=== PATIENT | female | born 1965 | race African-American/Black ===

== ENCOUNTER 2023-12-18 15:06 | Outpatient (AMB) | payer OTHER, SELFPAY ==
[2023-12-18 15:13] VITALS: BP 160/90; PULSE 65; O2SAT 97; BMI 38.0
--- NOTE | 2023-12-18 15:13 | HO.NEPHOV ---
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 She is diabetes for a long time but denies any retinopathy. She has cataract and is followed by Ophthalmology. She has history of proteinuria and neuropathy. She had a renal biopsy well over a decade ago, results of which she is unsure of. She had been closely followed up by Dr. Blackwell in the past. She denies any heart failure, CVA, peripheral arterial disease, carotid stenosis, coronary artery disease. She does not check her blood sugar every day. She claimed at her blood pressure usually is at goal. She has not very strict with low-sodium diet. 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 She has been having pedal edema for a long time. She has no family history of ESRD or renal transplantation. He has been monitoring about Vutisiran for her ATTR amyloid. Her serum creatinine has been well over 2.0. She has no history of malignancy, sensorineural deafness or autoimmune problems. She does not take any excessive nonsteroidal anti-inflammatories. She is active and employed. She is 2 children, a boy and a girl. Her daughter who is 34 years of age suffering from CIDP. [facility] Medical History (Updated 12/18/23 @ 16:03 by Bello Jiang MD) Allergic rhinitis Type 2 diabetes mellitus with renal manifestations Vitamin D deficiency Hypertension Hyperlipidemia Microalbuminuria Bilateral knee pain Bilateral wrist pain Surgical History (Updated 12/16/23 @ 16:04 by Holly Vera MA) Hx of tonsillectomy History of hand surgery Social History (Updated 12/18/23 @ 15:16 by Holly Vera MA) Alcohol intake: never Patient Tobacco Use Status: Never used Tobacco Physical Exam Vital Signs: Last Vital Signs Pulse 65 12/18/23 15:13 BP 160/90 H 12/18/23 15:13 Pulse Ox 97 12/18/23 15:13 Oxygen Delivery Method Room Air 12/18/23 15:13 BMI result Body Mass Index 38.0 Const General: comfortable and no acute distress Orientation/consciousness: patient oriented x3 HEENT Head: Yes normocephalic Mouth: Normal oral and palatal mucosa present Eyes EOM: EOMs intact bilaterally Neck Neck: Yes supple Resp Auscultation: clear to auscultation bilaterally Cardio Jugular venous distension: no JVD Rate: regular rate GI Palpation (GI): Soft to palpation Auscultation: normal bowel sounds General: Yes no CVA tenderness Back/Spine/Pelvis Back: no CVA tenderness Skin General skin exam: no rashes or lesions noted Neuro General: patient oriented x3 and moves all extremities Extrem General: Yes edema Results Reviewed Nephrology Results: No Data to Display Assessment & Plan Assessment & Plan (1) CKD (chronic kidney disease) stage 4, GFR 15-29 ml/min: Code(s): N18.4 - Chronic kidney disease, stage 4 (severe) Category: Medical (2) Edema: Code(s): R60.9 - Edema, unspecified Category: Medical Qualifiers: Edema type: unspecified Qualified Code(s): R60.9 - Edema, unspecified (3) Proteinuria: Code(s): R80.9 - Proteinuria, unspecified Category: Medical Qualifiers: Proteinuria type: other Qualified Code(s): R80.8 - Other proteinuria (4) Hypertension: Code(s): I10 - Essential (primary) hypertension Category: Medical Qualifiers: Hypertension type: primary hypertension Qualified Code(s): I10 - Essential (primary) hypertension (5) Wild-type transthyretin-related (ATTR) amyloidosis: Code(s): E85.82 - Wild-type transthyretin-related (ATTR) amyloidosis Category: Medical Plan Gisselle has CKD stage 4. She had a renal biopsy over a decade. I have not seen her gene testing or renal biopsy results. If she has ATTR amyloid, she needs serum immunofixation, cardiac evaluation before consideration of Vutisiran. Her edema likely is due to nifedipine. I have ordered urine studies including 24 hour collection for creatinine clearance. Based on the data, I shall considering taking her off nifedipine to help her improve with edema.Time spent discussing about all these issues and management strategies, retrieval of data and documentation included 58 minutes. Answered all questions. Follow up appointment given Orders: Orders Creatinine Today E85.82 - Wild-type transthyretin-related (ATTR) amyloidosis, I10 - Essential (primary) hypertension, N18.4 - Chronic kidney disease, stage 4 (severe), R60.9 - Edema, unspecified, R80.8 - Other proteinuria Blood Urea Nitrogen Today E85.82 - Wild-type transthyretin-related (ATTR) amyloidosis, I10 - Essential (primary) hypertension, N18.4 - Chronic kidney disease, stage 4 (severe), R60.9 - Edema, unspecified, R80.8 - Other proteinuria Creatinine Clearance Urine 24U Today E85.82 - Wild-type transthyretin-related (ATTR) amyloidosis, I10 - Essential (primary) hypertension, N18.4 - Chronic kidney disease, stage 4 (severe), R60.9 - Edema, unspecified, R80.8 - Other proteinuria Electrolytes Today E85.82 - Wild-type transthyretin-related (ATTR) amyloidosis, I10 - Essential (primary) hypertension, N18.4 - Chronic kidney disease, stage 4 (severe), R60.9 - Edema, unspecified, R80.8 - Other proteinuria Coding Level of Care Code New Pt Level 5 (23591) Diagnoses CKD (chronic kidney disease) stage 4, GFR 15-29 ml/min N18.4 Edema, unspecified type R60.9 Edema type: unspecified Other proteinuria R80.8 Proteinuria type: other Primary hypertension I10 Hypertension type: primary hypertension Wild-type transthyretin-related (ATTR) amyloidosis E85.82
== END 2023-12-18 16:17 | disposition home or self-care (01) ==
PROVIDERS: PCP Internal Medicine; Visit Provider Internal Medicine Nephrology
DX: I12.9 Hypertensive chronic kidney disease with stage 1 through stage 4 chronic kidney disease, or unspecified chronic kidney disease (principal); N18.4 Chronic kidney disease, stage 4 (severe); R60.9 Edema, unspecified; R80.8 Other proteinuria; E85.82 Wild-type transthyretin-related (ATTR) amyloidosis
CPT/HCPCS: 99205

== ENCOUNTER → 2023-12-18 15:06 | Outpatient (BNVA) | payer OTHER, SELFPAY | PROVIDERS: PCP Internal Medicine; Visit Provider Internal Medicine Nephrology ==

== ENCOUNTER 2024-02-03 14:30 | Outpatient (REF) | payer OTHER, SELFPAY ==
[2024-02-03 18:05] LABS: Anion Gap 15 (12-20); Blood Urea Nitrogen 31 mg/dL (9-16); Carbon Dioxide 21 mmol/L (22-29); Chloride 107 mmol/L (96-108); Estimated Glomerular Filt Rate 21; Potassium 4.2 mmol/L (3.3-5.1); Sodium 139 mmol/L (135-145)
[2024-02-03 18:35] LABS: Creatinine, mg/dL 50.17
[2024-02-03 18:45] LABS: Creatinine Clearance 41.3 mL/min (85-125); Creatinine, 24Hr Urine 1.4 G/Day (1.0-2.0); Total Volume 24 Hour Urine 2850 mL
== END 2024-02-03 14:31 | disposition home or self-care (01) ==
LOC: HO.HKASLDS 14:30
PROVIDERS: Visit Provider Internal Medicine Nephrology
DX: E85.82 Wild-type transthyretin-related (ATTR) amyloidosis (principal); R80.8 Other proteinuria; R60.9 Edema, unspecified; N18.4 Chronic kidney disease, stage 4 (severe); I12.9 Hypertensive chronic kidney disease with stage 1 through stage 4 chronic kidney disease, or unspecified chronic kidney disease
CPT/HCPCS: 36415; 80051; 82565; 82575; 84520

== ENCOUNTER 2024-02-17 15:07 | Outpatient (AMB) | payer OTHER, SELFPAY ==
[2024-02-17 15:19] VITALS: BP 138/80; PULSE 95; O2SAT 97; BMI 37.0
--- NOTE | 2024-02-17 15:19 | HO.NEPHOV ---
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 She is diabetes for a long time but denies any retinopathy. She has cataract and is followed by Ophthalmology. She has history of proteinuria and neuropathy. She had a renal biopsy well over a decade ago, results of which she is unsure of. She had been closely followed up by Dr. Blackwell in the past. She denies any heart failure, CVA, peripheral arterial disease, carotid stenosis, coronary artery disease. She does not check her blood sugar every day. She claimed at her blood pressure usually is at goal. She has not very strict with low-sodium diet. 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 She has been having pedal edema for a long time ( on nifedipine). She has no family history of ESRD or renal transplantation. He has been monitoring about Vutisiran for her ATTR amyloid. Her serum creatinine has been well over 2.0. She has no history of malignancy, sensorineural deafness or autoimmune problems. She does not take any excessive nonsteroidal anti-inflammatories. She is active and employed. She is 2 children, a boy and a girl. Her daughter who is 34 years of age suffering from CIDP. Her last GFR by cr cl was 41 mls/mt [facility] Medical History (Updated 02/17/24 @ 15:49 by Bello Jiang MD) Allergic rhinitis Type 2 diabetes mellitus with renal manifestations Vitamin D deficiency Hypertension Hyperlipidemia Microalbuminuria Bilateral knee pain Bilateral wrist pain Surgical History Hx of tonsillectomy History of hand surgery Social History Alcohol intake: never Patient Tobacco Use Status: Never used Tobacco Physical Exam Vital Signs: Last Vital Signs Pulse 95 02/17/24 15:19 BP 138/80 02/17/24 15:19 Pulse Ox 97 02/17/24 15:19 Oxygen Delivery Method Room Air 02/17/24 15:19 BMI result Body Mass Index 37.0 Const General: comfortable and no acute distress Orientation/consciousness: patient oriented x3 HEENT Head: Yes normocephalic Mouth: Normal oral and palatal mucosa present Eyes EOM: EOMs intact bilaterally Neck Neck: Yes supple Resp Auscultation: clear to auscultation bilaterally Cardio Jugular venous distension: no JVD Rate: regular rate GI Palpation (GI): Soft to palpation Auscultation: normal bowel sounds General: Yes no CVA tenderness Back/Spine/Pelvis Back: no CVA tenderness Skin General skin exam: no rashes or lesions noted Neuro General: patient oriented x3 and moves all extremities Extrem General: Yes edema Results Reviewed Nephrology Results: Sodium 139 mmol/L (135-145) 02/03/24 Potassium 4.2 mmol/L (3.3-5.1) 02/03/24 Chloride 107 mmol/L (96-108) 02/03/24 Carbon Dioxide 21 mmol/L (22-29) L 02/03/24 BUN 31 mg/dL (9-16) H 02/03/24 Creatinine 2.40 mg/dL (0.5-1.4) H 02/03/24 Assessment & Plan Assessment & Plan (1) Wild-type transthyretin-related (ATTR) amyloidosis: Code(s): E85.82 - Wild-type transthyretin-related (ATTR) amyloidosis Category: Medical (2) Proteinuria: Code(s): R80.9 - Proteinuria, unspecified Category: Medical Qualifiers: Proteinuria type: other Qualified Code(s): R80.8 - Other proteinuria (3) Edema: Code(s): R60.9 - Edema, unspecified Category: Medical Qualifiers: Edema type: unspecified Qualified Code(s): R60.9 - Edema, unspecified (4) Hypertension: Code(s): I10 - Essential (primary) hypertension Category: Medical Qualifiers: Hypertension type: primary hypertension Qualified Code(s): I10 - Essential (primary) hypertension (5) CKD stage 3b, GFR 30-44 ml/min: Code(s): N18.32 - Chronic kidney disease, stage 3b Category: Medical Plan Gisselle has CKD stage 3b. Her last cr cl by 24 hour urine is 41 mls/mt. She had a renal biopsy over a decade. I have not seen her gene testing or renal biopsy results. If she has ATTR amyloid, she needs serum immunofixation, cardiac evaluation before consideration of Vutisiran. Her edema likely is due to nifedipine. Based on the data, I shall considering taking her off nifedipine to help her improve with edema. Answered all questions. Follow up appointment given Orders: Orders Blood Urea Nitrogen Today E85.82 - Wild-type transthyretin-related (ATTR) amyloidosis, I10 - Essential (primary) hypertension, N18.32 - Chronic kidney disease, stage 3b, R60.9 - Edema, unspecified, R80.8 - Other proteinuria Protein Creatinine Ratio, Ur Today E85.82 - Wild-type transthyretin-related (ATTR) amyloidosis, I10 - Essential (primary) hypertension, N18.32 - Chronic kidney disease, stage 3b, R60.9 - Edema, unspecified, R80.8 - Other proteinuria Creatinine Today E85.82 - Wild-type transthyretin-related (ATTR) amyloidosis, I10 - Essential (primary) hypertension, N18.32 - Chronic kidney disease, stage 3b, R60.9 - Edema, unspecified, R80.8 - Other proteinuria Electrolytes Today E85.82 - Wild-type transthyretin-related (ATTR) amyloidosis, I10 - Essential (primary) hypertension, N18.32 - Chronic kidney disease, stage 3b, R60.9 - Edema, unspecified, R80.8 - Other proteinuria Immunofixation Pnl, Serum Today E85.82 - Wild-type transthyretin-related (ATTR) amyloidosis, I10 - Essential (primary) hypertension, N18.32 - Chronic kidney disease, stage 3b, R60.9 - Edema, unspecified, R80.8 - Other proteinuria Coding Level of Care Code Est Pt Level 4 (73712) Diagnoses Wild-type transthyretin-related (ATTR) amyloidosis E85.82 Other proteinuria R80.8 Proteinuria type: other Edema, unspecified type R60.9 Edema type: unspecified Primary hypertension I10 Hypertension type: primary hypertension CKD stage 3b, GFR 30-44 ml/min N18.32
== END 2024-02-17 15:57 | disposition home or self-care (01) ==
PROVIDERS: PCP Internal Medicine; Visit Provider Internal Medicine Nephrology
DX: E85.82 Wild-type transthyretin-related (ATTR) amyloidosis (principal); R80.8 Other proteinuria; R60.9 Edema, unspecified; I10 Essential (primary) hypertension; N18.32 Chronic kidney disease, stage 3b
CPT/HCPCS: 99214

== ENCOUNTER → 2024-02-17 15:07 | Outpatient (BNVA) | payer OTHER, SELFPAY | PROVIDERS: PCP Internal Medicine; Visit Provider Internal Medicine Nephrology ==

== ENCOUNTER 2024-05-05 13:49 | Outpatient (REF) | payer OTHER, SELFPAY ==
[2024-05-05 18:36] LABS: Anion Gap 14 (12-20); Blood Urea Nitrogen 29 mg/dL (9-16); Carbon Dioxide 20 mmol/L (22-29); Chloride 112 mmol/L (96-108); Estimated Glomerular Filt Rate 21; Potassium 4.1 mmol/L (3.3-5.1); Sodium 142 mmol/L (135-145)
[2024-05-05 19:17] LABS: Creatinine Urine 67.63 mg/dL; Protein/Creatinine Ratio, Ur 0.71 (<0.2); Total Protein Urine Random 48 mg/dL (<12)
[2024-05-07 20:38] LABS: IgA 326 mg/dL (70-320); IgG 1224 mg/dL (600-1540); IgM 88 mg/dL (50-300)
== END 2024-05-05 13:50 | disposition home or self-care (01) ==
LOC: HO.HKASLDS 13:49
PROVIDERS: Visit Provider Internal Medicine Nephrology
DX: I12.9 Hypertensive chronic kidney disease with stage 1 through stage 4 chronic kidney disease, or unspecified chronic kidney disease (principal); N18.32 Chronic kidney disease, stage 3b; E85.82 Wild-type transthyretin-related (ATTR) amyloidosis; R80.8 Other proteinuria; R60.9 Edema, unspecified
CPT/HCPCS: 36415; 80051; 82565; 82570; 82784; 84156; 84520; 86334

== ENCOUNTER 2024-05-11 16:16 | Outpatient (AMB) | payer OTHER, SELFPAY ==
--- NOTE | 2024-05-11 16:17 | HO.NEPHOV ---
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 She is diabetes for a long time but denies any retinopathy. She has cataract and is followed by Ophthalmology. She has history of proteinuria and neuropathy. She had a renal biopsy well over a decade ago, results of which she is unsure of. She had been closely followed up by Dr. Blackwell in the past. She denies any heart failure, CVA, peripheral arterial disease, carotid stenosis, coronary artery disease. She does not check her blood sugar every day. She claimed at her blood pressure usually is at goal. She has not very strict with low-sodium diet. 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 She has been having pedal edema for a long time ( on nifedipine). She has no family history of ESRD or renal transplantation. He has been monitoring about Vutisiran for her ATTR amyloid. Her serum creatinine has been well over 2.0. She has no history of malignancy, sensorineural deafness or autoimmune problems. She does not take any excessive nonsteroidal anti-inflammatories. She is active and employed. She is 2 children, a boy and a girl. Her daughter who is 34 years of age suffering from CIDP. Her last GFR by cr cl was 41 mls/mt [facility] Medical History (Updated 02/17/24 @ 15:49 by Bello Jiang MD) Allergic rhinitis Type 2 diabetes mellitus with renal manifestations Vitamin D deficiency Hypertension Hyperlipidemia Microalbuminuria Bilateral knee pain Bilateral wrist pain Surgical History Hx of tonsillectomy History of hand surgery Social History Alcohol intake: never Patient Tobacco Use Status: Never used Tobacco Review of Systems Const All systems reviewed & are unremarkable except as noted in HPI and below Physical Exam Vital Signs: Last Vital Signs Pulse 68 05/11/24 16:19 BP 142/80 H 05/11/24 16:19 Pulse Ox 98 05/11/24 16:19 Oxygen Delivery Method Room Air 05/11/24 16:19 BMI result Body Mass Index 37.8 Const General: comfortable and no acute distress Orientation/consciousness: patient oriented x3 HEENT Head: Yes normocephalic Mouth: Normal oral and palatal mucosa present Eyes EOM: EOMs intact bilaterally Neck Neck: Yes supple Resp Auscultation: clear to auscultation bilaterally Cardio Jugular venous distension: no JVD Rate: regular rate Heart sounds: Murmur heart sound present GI Palpation (GI): Soft to palpation Auscultation: normal bowel sounds General: Yes no CVA tenderness Back/Spine/Pelvis Back: no CVA tenderness Skin General skin exam: no rashes or lesions noted Neuro General: patient oriented x3 and moves all extremities Extrem General: Yes edema Results Reviewed Nephrology Results: Sodium 142 mmol/L (135-145) 05/05/24 Potassium 4.1 mmol/L (3.3-5.1) 05/05/24 Chloride 112 mmol/L (96-108) H 05/05/24 Carbon Dioxide 20 mmol/L (22-29) L 05/05/24 BUN 29 mg/dL (9-16) H 05/05/24 Creatinine 2.40 mg/dL (0.5-1.4) H 05/05/24 Urine Creatinine 67.63 mg/dL 05/05/24 Protein/Creatinin Ratio 0.71 (<0.2) H 05/05/24 Assessment & Plan Assessment & Plan (1) CKD stage 3b, GFR 30-44 ml/min: Code(s): N18.32 - Chronic kidney disease, stage 3b Category: Medical (2) Proteinuria: Code(s): R80.9 - Proteinuria, unspecified Category: Medical Qualifiers: Proteinuria type: other Qualified Code(s): R80.8 - Other proteinuria (3) Edema: Code(s): R60.9 - Edema, unspecified Category: Medical Qualifiers: Edema type: unspecified Qualified Code(s): R60.9 - Edema, unspecified (4) Hypertension: Code(s): I10 - Essential (primary) hypertension Category: Medical Qualifiers: Hypertension type: primary hypertension Qualified Code(s): I10 - Essential (primary) hypertension Plan Gisselle has CKD stage 3b. Her last cr cl by 24 hour urine is 41 mls/mt. Her renal functions are stable. She had a renal biopsy over a decade. I have not seen her gene testing or renal biopsy results. If she has ATTR amyloid, she needs serum immunofixation, cardiac evaluation before consideration of Vutisiran. Her edema likely is due to nifedipine. So I discontinued Nifedipine and increased her hydralazine to 75 mg tid. She may need addition of Imdur and diuretics. Answered all questions. Follow up appointment given Orders: Orders Creatinine 3 Months I10 - Essential (primary) hypertension, N18.32 - Chronic kidney disease, stage 3b, R60.9 - Edema, unspecified, R80.8 - Other proteinuria Electrolytes 3 Months I10 - Essential (primary) hypertension, N18.32 - Chronic kidney disease, stage 3b, R60.9 - Edema, unspecified, R80.8 - Other proteinuria Blood Urea Nitrogen 3 Months I10 - Essential (primary) hypertension, N18.32 - Chronic kidney disease, stage 3b, R60.9 - Edema, unspecified, R80.8 - Other proteinuria Medications: Changed From hydralazine 75 mg PO TID To hydralazine 75 mg (1.5 x 50 mg) PO TID 90 days 405 tabs 3RF Coding Level of Care Code Est Pt Level 4 (79765) Diagnoses CKD stage 3b, GFR 30-44 ml/min N18.32 Other proteinuria R80.8 Proteinuria type: other Edema, unspecified type R60.9 Edema type: unspecified Primary hypertension I10 Hypertension type: primary hypertension
[2024-05-11 16:19] VITALS: BP 142/80; PULSE 68; O2SAT 98; BMI 37.8
== END 2024-05-11 16:40 | disposition home or self-care (01) ==
PROVIDERS: PCP Internal Medicine; Visit Provider Internal Medicine Nephrology
DX: N18.32 Chronic kidney disease, stage 3b (principal); R80.8 Other proteinuria; R60.9 Edema, unspecified; I10 Essential (primary) hypertension
CPT/HCPCS: 99214

== ENCOUNTER → 2024-05-11 16:16 | Outpatient (BNVA) | payer OTHER, SELFPAY | PROVIDERS: PCP Internal Medicine; Visit Provider Internal Medicine Nephrology ==

== ENCOUNTER 2024-08-26 10:20 | Outpatient (REF) | payer OTHER, SELFPAY ==
--- OUTSIDE RECORDS SUMMARY | 2024-08-26 13:47 | XMS_ITS | Clinical Summary ---
Author Organization [facility] Address [address] [place] [address] Phone Care Team Providers Care Broom Stitcher Name Role Phone Susan Hodge MD Primary Care Provider [phone] Allergies Active Allergy Reactions Criticality Noted Date Comments Aspirin 02/15/2009 Lisinopril 02/15/2009 Medications Medication Sig Dispensed Refills Start Date End Date Status calcifediol (Rayaldee) 30 mcg capsule,extended release 24 hr Take 1 capsule by mouth. Active cholecalciferol (VITAMIN D-3) 50 mcg (2,000 unit) tablet Take 1 tablet (2,000 Units total) by mouth 1 (one) time each day. 10/15/2022 Active dulaglutide (Trulicity) 3 mg/0.5 mL pen injector injection Inject 0.5 mL (3 mg total) under the skin. 09/19/2023 Active glipiZIDE (GLUCOTROL XL) 5 mg 24 hr tablet Take 1 tablet (5 mg total) by mouth 2 (two) times a day. 09/18/2023 Active hydrALAZINE (APRESOLINE) 25 mg tablet Take 1 tablet (25 mg total) by mouth. 09/18/2023 Active labetaloL (NORMODYNE) 200 mg tablet Take 1 tablet (200 mg total) by mouth. Active loratadine (CLARITIN) 10 mg tablet Take 1 tablet (10 mg total) by mouth 1 (one) time each day. 05/20/2023 Active losartan (COZAAR) 100 mg tablet Take 1 tablet (100 mg total) by mouth. 10/15/2022 Active NIFEdipine CC (ADALAT CC) 90 mg 24 hr tablet Take 1 tablet (90 mg total) by mouth 1 (one) time each day. 03/21/2023 Active simvastatin (ZOCOR) 20 mg tablet Take 1 tablet (20 mg total) by mouth 1 (one) time each day. 05/20/2023 Active atorvastatin (LIPITOR) 10 mg tabletIndications:Esse ntial (primary) hypertension,Type 2 diabetes mellitus with other diabetic kidney complication ([facility]) TAKE 1 TABLET BY MOUTH EVERY DAY 90 tablet 1 07/14/2024 Active Active Problems Problem Noted Date Diagnosed Date Bilateral knee pain 09/29/2023 Bilateral wrist pain 06/27/2021 Microalbuminuria 02/22/2019 Hypertension 03/09/2018 Hyperlipidemia 03/09/2018 Type 2 diabetes mellitus with renal manifestatio ns 03/09/2018 Vitamin D deficiency 03/09/2018 Allergic rhinitis 12/05/2014 Surgical History Surgery Date Site/Laterality Comments TONSILLECTOMY PROCEDURE: HISTORICAL TONSILLECTOMY HAND SURGERY PROCEDURE: HISTORICAL HAND SURGERY Medical History Medical History Date Comments Microalbuminuria 02/22/2019 DX:Microalbumin uria Allergic rhinitis 12/05/2014 DX:Allergic rh initis Hyperlipidemia 03/09/2018 DX:Hyperlipidemi a Hypertension 03/09/2018 DX:Hypertension Type 2 diabetes mellitus wit h renal manifestations ([facility]) 03/09/2018 DX:Type 2 diabetes mellitus with renal manifestations ([facility]) Vitamin D deficiency 03/09/2018 DX:Vitamin D deficiency Severe obesity (BMI 35.0-35. 9 with comorbidity) (CMS/HCC) 02/22/2019 DX:Severe obesity (BMI 35.0- 35.9 with comorbidity) ([facility]) Bilateral knee pain DX:Bilateral knee pain Social History Tobacco Use Types Packs/Day Years Used Date Smoking Tobacco: Never Smokeless Tobacco: Never Alcohol Use Standard Drinks/Week Comments No 0 (1 standard drink = 0.6 oz pur e alcohol) Sex and Gender Information Value Date Recorded Sex Assigned at Not on file Gender Identity Not on file Sexual Orientation Not on file Obstetrics History Last Filed Vital Signs Vital Sign Reading Time Taken Comments Blood Pressure 130/80 05/05/2024 2:32 PM EDT Pulse 85 05/05/2024 2:32 PM EDT Temperature - - Respiratory Rate - - Oxygen Saturation - - Inhaled Oxygen Concentration - - Weight 89.4 kg (197 lb) 05/05/2024 2:32 PM EDT Height 157.5 cm (5' 2 ) 05/05/2024 2:32 PM EDT Body Mass Index 36.03 05/05/2024 2:32 PM EDT Plan of Treatment Upcoming Encounters Date Type Department Care Team (Late st Contact Info) Description 11/16/2024 11:30 AM EDT Office Visit Internal Medicine - [place] [address] [facility] [address] [place] [address] Susan Hodge MD [address] [facility] [address] [place] [address] Health Maintenance Due Date Last Done Comments Breast Cancer Screening 1965 COVID-19 Vaccine (#1) 02/14/1968 Pneumococcal Vaccine: Pediatrics (0 to 5 Years) and At-Risk Patients (6 to 64 Years) (1 of 2 - PCV) 1969 Diabetes: Annual Foot Exam 1973 DTaP,Tdap,and Td Vaccines (1 - Tdap) 1982 Zoster Vaccines (1 of 2) 1982 Colorectal Cancer Screening: Colonoscopy 07/06/2022 Depression Screening 07/06/2022 HIV Screening 07/06/2022 Hepatitis C Screening 07/06/2022 Social Influencers of Health Screening 07/06/2022 RSV Immunization Patients 60 + Years Old (1 - Risk 60-74 years 1-dose series) 2023 Diabetes: Annual Urine Albumin-Creatinine Ratio (uACR) 05/30/2023 05/30/2022 Diabetes: Annual Retina Eye Exam 02/01/2024 01/31/2023 Influenza Vaccine (#1) 2024 Diabetes: Blood Sugar Contro l Test (HGBA1C) 06/18/2024 12/17/2023, 09/18/2023 Diabetes: Annual GFR (Glomerular Filtration Rate) 12/16/2024 12/17/2023 Hypertension/CHF/CAD Annual BMP Blood Test 12/16/2024 12/17/2023 Cervical Cancer Screening: P ap Smear 03/07/2026 03/07/2023 Cholesterol Screening (Lipid Panel) 03/21/2028 03/21/2023 HIB Vaccines Aged Out No longer eligi ble based on patient's age to complete this topic HPV Vaccines Aged Out No longer eligi ble based on patient's age to complete this topic Hepatitis A Vaccines Aged Out No long er eligible based on patient's age to complete this topic Hepatitis B Vaccines Aged Out No long er eligible based on patient's age to complete this topic IPV Vaccines Aged Out No longer eligi ble based on patient's age to complete this topic MMR Vaccines Aged Out No longer eligi ble based on patient's age to complete this topic Meningococcal ACWY Vaccine Aged Out N o longer eligible based on patient's age to complete this topic RSV Immunization Patients Under 20 months Aged Out No longer eligible b ased on patient's age to complete this topic Varicella Vaccines Aged Out No longer eligible based on patient's age to complete this topic Procedures Procedure Name Priority Date/Time Associated Diagnosis Comments HEMOGLOBIN A1C Routine 09/18/2023 LIPID PANEL Routine 03/21/2023 HM PAP SMEAR Routine 03/07/2023 from Last 3 Months or Most Recently Relevant to Health Maintenance Results * Hemoglobin A1c (09/18/2023) Hemoglobin A1C 7.0 % Blood Venous blood specimen / Unknown Historical Provider LAB BLOOD ORDERAB LES * Lipid panel (03/21/2023) LDL/HDL Ratio 3 Triglycerides 57 mg/dL Cholesterol 154 mg/dL HDL 52 mg/dL LDL Cholesterol 91 mg/dL Blood Venous blood specimen / Unknown Historical Provider LAB BLOOD ORDERAB LES * Hm Pap Smear (03/07/2023) HM Pap smear Negative Historical Provider MD VICKEY North from Last 3 Months or Most Recently Relevant to Health Maintenance Care Teams Broom Stitcher Relationship Specialty Start Date End Date Susan Hodge MD PCP - General Internal Medicine 07/19/20
--- OUTSIDE RECORDS SUMMARY | 2024-08-26 13:47 | XMS_ITS | Encounter Summary ---
Author Organization [facility], Address [address] [place] [address] Phone Care Team Providers Care Line Producer Name Role Phone Susan Hodge MD Primary Care Provider Encounter Details Date Type Department Care Team (Late st Contact Info) Description 04/29/2023 Documentation Only [facility], [address] [place] [phone] Susan Hodge MD [address] [phone] Social History Tobacco Use Types Packs/Day Years Used Date Smoking Tobacco: Never Assessed Comments Unknown Sex and Gender Information Value Date Recorded Sex Assigned at Not on file Legal Sex Female 5:15 PM EST Gender Identity Not on file Sexual Orientation Not on file documented as of this encounter Plan of Treatment Upcoming Encounters Date Type Department Care Team (Late st Contact Info) Description 10/04/2024 3:00 PM EDT Office Visit [facility] [address] [address] Amos Tavarez MD [address] [facility] [address] [place] [address] documented as of this encounter Visit Diagnoses Not on filedocumented in this encounter Care Teams Line Producer Relationship Specialty Start Date End Date Susan Hodge MD [address] [phone] PCP - General Internal Medicine 04/28/23 documented as of this encounter
--- OUTSIDE RECORDS SUMMARY | 2024-08-26 13:47 | XMS_ITS | Clinical Summary ---
Author Organization [facility] Address [address] [place] [address] Care Team Providers Care Inter Fold Roll Cutter Name Role Phone Susan Hodge MD Primary Care Provider [phone] Allergies Active Allergy Reactions Criticality Noted Date Comments Aspirin 12/27/2020 Other reaction(s): rash/itching Lisinopril 12/27/2020 Other reaction(s): hives Medications glipiZIDE (GLUCOTROL XL) 5 MG 24 hr tablet TAKE 1 TABLET BY MOUTH EVERY DAY WITH DINNER 10/20/2020 Active labetalol (NORMODYNE) 200 MG tablet TAKE 1 TABLET BY MOUTH TWICE A DAY 180 tablet 3 08/27/2021 Active cholecalciferol (VITAMIN D-3) 50 MCG (1999 UT) capsule TAKE 1 CAPSULE BY MOUTH EVERY DAY 90 capsule 3 05/19/2023 Active atorvastatin (LIPITOR) 10 MG tablet Take 10 mg by mouth 1 (one) time each day 04/22/2023 Active losartan (COZAAR) 100 MG tablet 06/22/2023 Active NIFEdipine CC (ADALAT CC) 90 MG 24 hr tablet Take 90 mg by mouth 1 (one) time each day 04/05/2023 Active Dulaglutide (Trulicity) 3 MG/0.5ML solution pen-injector Inject under the skin Active hydrALAZINE 25 MG tablet Take 1 tablet by mouth in the morning and 1 tablet in the evening and 1 tablet before bedtime. 09/18/2023 Active Active Problems Problem Noted Date Diagnosed Date Nephritic syndrome 06/25/2023 06/25/2023 Chronic kidney disease stage 2 12/27/2020 Hypertensive heart disease without congestive he art failure 12/27/2020 Localized edema 12/27/2020 Renal disorder due to type 2 diabetes mellitus 0 12/27/2020 Social History Tobacco Use Types Packs/Day Years Used Date Smoking Tobacco: Never Passive Smoke Exposure: Never Smokeless Tobacco: Never Tobacco Cessation:Counseling Given: Not Answered Alcohol Use Standard Drinks/Week Comments Never 0 (1 standard drink = 0.6 oz pur e alcohol) Comments Unknown Sex and Gender Information Value Date Recorded Sex Assigned at Not on file Legal Sex Female 5:15 PM EST Gender Identity Not on file Sexual Orientation Not on file Last Filed Vital Signs Vital Sign Reading Time Taken Comments Blood Pressure 160/100 10/22/2023 4:34 PM EDT Pulse 95 10/22/2023 4:34 PM EDT Temperature - - Respiratory Rate - - Oxygen Saturation 98% 06/25/2023 4:37 PM EST Inhaled Oxygen Concentration - - Weight 90.7 kg (200 lb) 10/22/2023 4:34 PM EDT Height - - Body Mass Index - - Plan of Treatment Upcoming Encounters Date Type Department Care Team (Late st Contact Info) Description 10/04/2024 3:00 PM EDT [facility] [address] [phone] Amos Tavarez MD [address] [address] Health Maintenance Due Date Last Done Comments Breast Cancer Screening 1965 Pneumococcal Vaccine: Pediatrics (0 to 5 Years) and At-Risk Patients (6 to 64 Years) (1 of 2 - PCV) 1969 Colorectal Cancer Screening: Annual FOBT 02/14/2012 Colorectal Cancer Screening: Colonoscopy 02/14/2012 Colorectal Cancer Screening: Sigmoidoscopy 02/14/2012 Diabetes: Ophthalmology Exam 08/28/2020 Diabetes: Pedal Pulse Checked 08/28/2020 Diabetes: Sensory Foot Exam 08/28/2020 Diabetes: Visual Foot Exam 08/28/2020 Diabetes: Hemoglobin A1C 12/17/2023 024, 05/20/2023, 12/27/2020 Influenza Vaccine (#1) 2024 Hepatitis B Vaccine Aged Out No longe r eligible based on patient's age to complete this topic Procedures Procedure Name Priority Date/Time Associated Diagnosis Comments HEMOGLOBIN A1C Routine 05/20/2023 3:06 PM EDT from Last 3 Months or Most Recently Relevant to Health Maintenance Results * (ABNORMAL) Hemoglobin A1c (05/20/2023 3:06 PM EDT) Hemoglobin A1C 6.7(H) (4.0-5.6) % [facility] Comment: MONITORING: In known diabetic patients, hemoglobin A1c targets should be discussed with health care provider. DIAGNOSTIC USE: ??The [place] Diabetes Association (ADA) and the World Health Organization (WHO) recommend the use of HbA1c to diagnose diabetes using a threshold of 6.5%. Patients who have an HbA1c between 5.7% and 6.4% are considered at increased risk for developing diabetes in the future. CAUTION: Falsely low HbA1c results may be observed in patients with hemolytic anemia, homozygous forms of abnormal hemoglobin (e.g. SS, CC, SC), , recent blood loss or hemoglobin F greater than 7%. Fructosamine may be used as an alternate test in these cases. REFERENCE: ADA: Standards of Medical Care in Diabetes 2020, The Journal of Clinical and Applied Research and Education Volume 43, Supplement 1 Testing performed or reported by [facility], a Service of [facility], [address] [place] [address] Oneil Neal MD, Commercial Analyst [facility]# [id number] 05/20/2023 3:06 PM EDT 05/20/2023 3:11 PM EDT us Ino Blackwell MD LAB BLOOD ORDERABLES Final Re sult [facility] from Last 3 Months or Most Recently Relevant to Health Maintenance [place] [address] [place] [address] Care Teams Inter Fold Roll Cutter Relationship Specialty Start Date End Date Susan oHdge MD 175 [facility] [address] [place] [phone] PCP - General Internal Medicine 04/28/23
[2024-08-26 17:55] LABS: Anion Gap 13 (12-20); Blood Urea Nitrogen 27 mg/dL (9-16); Carbon Dioxide 20 mmol/L (22-29); Chloride 107 mmol/L (96-108); Estimated Glomerular Filt Rate 23; Sodium 136 mmol/L (135-145)
== END 2024-08-26 10:21 | disposition home or self-care (01) ==
LOC: HO.HKASLDS 10:20
PROVIDERS: Visit Provider Internal Medicine Nephrology
DX: N18.32 Chronic kidney disease, stage 3b (principal); R80.8 Other proteinuria; R60.9 Edema, unspecified; I10 Essential (primary) hypertension
CPT/HCPCS: 36415; 80051; 82565; 84520

== ENCOUNTER 2024-08-31 12:05 | Outpatient (AMB) | payer OTHER, SELFPAY ==
[2024-08-31 12:08] VITALS: BP 130/70; PULSE 75; O2SAT 97; BMI 35.7
--- NOTE | 2024-08-31 12:08 | HO.NEPHOV_ITS ---
Vital Signs 08/31/24 12:08 Height 5 ft 1 in Weight 189 lb 2 oz BMI 35.7 BP 130/70 Blood Pressure Location Lt brachial Position Sitting Pulse 75 Pulse Source Pulse Oximeter Pulse Oximetry (%) 97 Oxygen Delivery Method Room Air Intake Visit Reasons: 3 mon follow up-[facility] Mid Wife Required: No Accompanied by: Self / Same As Patient Allergies aspirin Allergy (Verified 08/31/24 12:08) Hives lisinopril Allergy (Verified 08/31/24 12:08) Hives HPI Comments Details: Gisselle was seen in follow up for advanced chronic kidney disease. She is diabetes for a long time but denies any retinopathy. She has cataract and is followed by Ophthalmology. She has history of proteinuria and neuropathy. She had a renal biopsy well over a decade ago, results of which she is unsure of. She had been closely followed up by Dr. Blackwell in the past. She denies any heart failure, CVA, peripheral arterial disease, carotid stenosis, coronary artery disease. She does not check her blood sugar every day. She claimed at her blood pressure usually is at goal. She has not very strict with low-sodium diet. 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 She has been having pedal edema for a long time ( on nifedipine). She has no family history of ESRD or renal transplantation. He has been monitoring about Vutisiran for her ATTR amyloid. Her serum creatinine has been well over 2.0. She has no history of malignancy, sensorineural deafness or autoimmune problems. She does not take any excessive nonsteroidal anti-inflammatories. She is active and employed. She is 2 children, a boy and a girl. Her daughter who is 34 years of age suffering from CIDP. Her last GFR by cr cl was 41 mls/mt [facility] Medical History (Updated 02/17/24 @ 15:49 by Bello Jiang MD) Allergic rhinitis Type 2 diabetes mellitus with renal manifestations Vitamin D deficiency Hypertension Hyperlipidemia Microalbuminuria Bilateral knee pain Bilateral wrist pain Surgical History Hx of tonsillectomy History of hand surgery Social History Alcohol intake: never Patient Tobacco Use Status: Never used Tobacco Review of Systems Const All systems reviewed & are unremarkable except as noted in HPI and below Physical Exam Const General: comfortable and no acute distress Orientation/consciousness: patient oriented x3 HEENT Head: Yes normocephalic Mouth: Normal oral and palatal mucosa present Eyes EOM: EOMs intact bilaterally Neck Neck: Yes supple Resp Auscultation: clear to auscultation bilaterally Cardio Jugular venous distension: no JVD Rate: regular rate GI Palpation (GI): Soft to palpation Auscultation: normal bowel sounds General: Yes no CVA tenderness Back/Spine/Pelvis Back: no CVA tenderness Skin General skin exam: no rashes or lesions noted Neuro General: patient oriented x3 and moves all extremities Extrem General: Yes no pedal edema Results Reviewed Nephrology Results: Sodium 136 mmol/L (135-145) 08/26/24 Potassium 4.0 mmol/L (3.3-5.1) 08/26/24 Chloride 107 mmol/L (96-108) 08/26/24 Carbon Dioxide 20 mmol/L (22-29) L 08/26/24 BUN 27 mg/dL (9-16) H 08/26/24 Creatinine 2.18 mg/dL (0.5-1.4) H 08/26/24 Assessment & Plan Assessment & Plan (1) CKD stage 3b, GFR 30-44 ml/min: Code(s): N18.32 - Chronic kidney disease, stage 3b Category: Medical (2) Wild-type transthyretin-related (ATTR) amyloidosis: Code(s): E85.82 - Wild-type transthyretin-related (ATTR) amyloidosis Category: Medical (3) Proteinuria: Code(s): R80.9 - Proteinuria, unspecified Category: Medical Qualifiers: Proteinuria type: other Qualified Code(s): R80.8 - Other proteinuria (4) Hypertension: Code(s): I10 - Essential (primary) hypertension Category: Medical Qualifiers: Hypertension type: primary hypertension Qualified Code(s): I10 - Essential (primary) hypertension Plan Gisselle has CKD stage 3b. Her last cr cl by 24 hour urine is 41 mls/mt. Her renal functions are stable. She had a renal biopsy over a decade. I have not seen her gene testing or renal biopsy results. If she has ATTR amyloid, she may be a candidate for Vutisiran. I did not make any medication changes today. Answered all questions. Follow up appointment given Orders: Orders Creatinine 4 Months E85.82 - Wild-type transthyretin-related (ATTR) amyloidosis, I10 - Essential (primary) hypertension, N18.32 - Chronic kidney disease, stage 3b, R80.8 - Other proteinuria Blood Urea Nitrogen 4 Months E85.82 - Wild-type transthyretin-related (ATTR) amyloidosis, I10 - Essential (primary) hypertension, N18.32 - Chronic kidney disease, stage 3b, R80.8 - Other proteinuria Protein Creatinine Ratio, Ur 4 Months E85.82 - Wild-type transthyretin-related (ATTR) amyloidosis, I10 - Essential (primary) hypertension, N18.32 - Chronic kidney disease, stage 3b, R80.8 - Other proteinuria Electrolytes 4 Months E85.82 - Wild-type transthyretin-related (ATTR) amyloidosis, I10 - Essential (primary) hypertension, N18.32 - Chronic kidney disease, stage 3b, R80.8 - Other proteinuria Coding Level of Care Code Est Pt Level 4 (77480) Diagnoses CKD stage 3b, GFR 30-44 ml/min N18.32 Wild-type transthyretin-related (ATTR) amyloidosis E85.82 Other proteinuria R80.8 Proteinuria type: other Primary hypertension I10 Hypertension type: primary hypertension
--- OUTSIDE RECORDS SUMMARY | 2024-08-31 12:50 | XMS_ITS | Encounter Summary ---
Author Organization [facility], Address [address] [place] [address] Phone Care Team Providers Care Instrumentation And Control Technician Name Role Phone Susan Hodge MD Primary Care Provider [phone] Encounter Details Date Type Department Care Team (Late st Contact Info) Description 04/29/2023 Documentation Only [facility], [address] [place] [phone] Susan Hodge MD [address] [phone] Social History Tobacco Use Types Packs/Day Years [...] Visit [facility] [address] [phone] Amos Tavarez MD [address] [facility] [address] [place] [address] documented as of this encounter Visit Diagnoses Not on filedocumented in this encounter Care Teams Instrumentation And Control Technician Relationship Specialty Start Date End Date Susan Hodge MD [address] [phone] PCP - General Internal Medicine 04/28/23 documented as of this encounter
--- OUTSIDE RECORDS SUMMARY | 2024-08-31 12:50 | XMS_ITS | Clinical Summary ---
Author Organization [facility] Address [address] [place] [address] Phone Care Team Providers Care Metal Plater Name Role Phone Susan Hodge MD Primary Care Provider [phone] Allergies Active Allergy Reactions Criticality Noted Date [...] diabetes mellitus with other diabetic kidney complication ([facility]) TAKE 1 TABLET BY MOUTH [...] 2 diabetes mellitus wit h renal manifestations ([facility]) 03/09/2018 DX:Type 2 diabetes mellitus with renal manifestations ([facility]) Vitamin D deficiency 03/09/2018 DX:Vitamin D deficiency Severe obesity (BMI 35.0-35. 9 with comorbidity) (CMS/HCC) 02/22/2019 DX:Severe obesity (BMI 35.0- 35.9 with comorbidity) ([facility]) Bilateral knee pain DX:Bilateral knee [...] AM EDT Office Visit Internal Medicine - [place] [address] [facility] [address] [place] [address] Susan Hodge MD [address] [facility] [address] [place] [address] Health Maintenance Due Date Last [...] Recently Relevant to Health Maintenance Care Teams Metal Plater Relationship Specialty Start Date End Date Susan Hodge MD PCP - General Internal Medicine 07/19/20
--- OUTSIDE RECORDS SUMMARY | 2024-08-31 12:50 | XMS_ITS | Clinical Summary ---
Author Organization [facility] Facility Address [address] [place] [address] Care Team Providers Care Lab Director Name Role Phone Susan Hodge MD Primary Care Provider [phone] Allergies Active Allergy Reactions Criticality Noted Date [...] Visit [facility] [address] [phone] Amos Tavarez MD [address] [phone] Health Maintenance Due Date Last Done Comments [...] PM EDT) Hemoglobin A1C 6.7(H) (4.0-5.6) % [facility] Comment: MONITORING: In known diabetic patients, hemoglobin A1c targets should be discussed with health care provider. DIAGNOSTIC USE: ??The [place] Diabetes Association (ADA) and the World Health [...] Supplement 1 Testing performed or reported by [facility], a Service of [facility], [address] [place] [address] Oneil Neal MD, Power Plant Engineer [facility]# [id number] 05/20/2023 3:06 PM EDT 05/20/2023 3:11 PM EDT us Ino Blackwell MD LAB BLOOD ORDERABLES Final Re sult [facility] from Last 3 Months or Most Recently Relevant to Health Maintenance [place] [address] [place] [address] Care Teams Lab Director Relationship Specialty Start Date End Date Susan Hodge MD [address] [facility] [address] [place] [phone] PCP - General Internal Medicine 04/28/23
== END 2024-08-31 12:31 | disposition home or self-care (01) ==
PROVIDERS: PCP Internal Medicine; Visit Provider Internal Medicine Nephrology
DX: N18.32 Chronic kidney disease, stage 3b (principal); E85.82 Wild-type transthyretin-related (ATTR) amyloidosis; R80.8 Other proteinuria; I10 Essential (primary) hypertension
CPT/HCPCS: 99214

== ENCOUNTER → 2024-08-31 12:05 | Outpatient (BNVA) | payer OTHER, SELFPAY | PROVIDERS: PCP Internal Medicine; Visit Provider Internal Medicine Nephrology ==

== ENCOUNTER 2025-01-11 10:35 | Outpatient (REF) | payer OTHER, SELFPAY ==
[2025-01-11 18:12] LABS: Anion Gap 13 (12-20); Blood Urea Nitrogen 39 mg/dL (9-16); Carbon Dioxide 22 mmol/L (22-29); Chloride 109 mmol/L (96-108); Estimated Glomerular Filt Rate 23; Potassium 4.5 mmol/L (3.3-5.1); Sodium 139 mmol/L (135-145)
[2025-01-11 18:13] LABS: Creatinine Urine 65.55 mg/dL; Protein/Creatinine Ratio, Ur 3.14 (<0.2); Total Protein Urine Random 206 mg/dL (<12)
== END 2025-01-11 10:36 | disposition home or self-care (01) ==
LOC: HO.HKASLDS 10:35
PROVIDERS: Visit Provider Internal Medicine Nephrology
DX: N18.32 Chronic kidney disease, stage 3b (principal); E85.82 Wild-type transthyretin-related (ATTR) amyloidosis; R80.8 Other proteinuria; I10 Essential (primary) hypertension
CPT/HCPCS: 36415; 80051; 82565; 82570; 84156; 84520

== ENCOUNTER 2025-01-18 10:51 | Outpatient (AMB) | payer OTHER, SELFPAY ==
--- NOTE | 2025-01-18 11:23 | HO.NEPHOV ---
Vital Signs 01/18/25 11:24 Height 5 ft 1 in Weight 203 lb BMI 38.4 BP 163/92 H Blood Pressure Location Lt brachial Position Sitting Pulse 69 Pulse Source Pulse Oximeter Pulse Oximetry (%) 97 Oxygen Delivery Method Room Air Intake Visit Reasons: Follow up 4mo-LVM Intake Note: Patient here for a follow-up. Social Media Content Specialist Required: No Accompanied by: Self / Same As Patient Allergies aspirin Allergy (Verified 01/18/25 11:27) Hives lisinopril Allergy (Verified 01/18/25 11:27) Hives Do you need a note to return to daycare/school/sports/work: No HPI Comments Details: Gisselle was seen in follow up for advanced chronic kidney disease. She is diabetes for a long time but denies any retinopathy. She has cataract and is followed by Ophthalmology. She has history of proteinuria and neuropathy. She had a renal biopsy well over a decade ago, results of which she is unsure of. She had been closely followed up by Dr. Blackwell in the past. She denies any heart failure, CVA, peripheral arterial disease, carotid stenosis, coronary artery disease. She does not check her blood sugar every day. She claimed at her blood pressure usually is at goal. She has not very strict with low-sodium diet. 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 She has been having pedal edema for a long time ( on nifedipine). She has no family history of ESRD or renal transplantation. He has been monitoring about Vutisiran for her ATTR amyloid. Her serum creatinine has been well over 2.0. She has no history of malignancy, sensorineural deafness or autoimmune problems. She does not take any excessive nonsteroidal anti-inflammatories. She is active and employed. She is 2 children, a boy and a girl. Her daughter who is 34 years of age suffering from CIDP. Her last GFR by cr cl was 41 mls/mt FOR[facility]LY [facility], [facility] Medical History Allergic rhinitis Type 2 diabetes mellitus with renal manifestations Vitamin D deficiency Hypertension Hyperlipidemia Microalbuminuria Bilateral knee pain Bilateral wrist pain Surgical History Hx of tonsillectomy History of hand surgery Social History Alcohol intake: never Patient Tobacco Use Status: Never used Tobacco Review of Systems Const All systems reviewed & are unremarkable except as noted in HPI and below Physical Exam Vital Signs: Last Vital Signs Pulse 69 01/18/25 11:24 BP 163/92 H 01/18/25 11:24 Pulse Ox 97 01/18/25 11:24 Oxygen Delivery Method Room Air 01/18/25 11:24 BMI result Body Mass Index 38.4 Const General: comfortable and no acute distress Orientation/consciousness: patient oriented x3 HEENT Head: Yes normocephalic Mouth: Normal oral and palatal mucosa present Eyes EOM: EOMs intact bilaterally Neck Neck: Yes supple Resp Auscultation: clear to auscultation bilaterally Cardio Jugular venous distension: no JVD Rate: regular rate GI Palpation (GI): Soft to palpation Auscultation: normal bowel sounds General: Yes no CVA tenderness Back/Spine/Pelvis Back: no CVA tenderness Skin General skin exam: no rashes or lesions noted Neuro General: patient oriented x3 and moves all extremities Extrem General: Yes no pedal edema Results Reviewed Nephrology Results: Sodium, (135-145) 139 mmol/L 01/11/25 Potassium, (3.3-5.1) 4.5 mmol/L 01/11/25 Chloride, (96-108) 109 mmol/L H 01/11/25 Carbon Dioxide, (22-29) 22 mmol/L 01/11/25 BUN, (9-16) 39 mg/dL H 01/11/25 Creatinine, (0.5-1.4) 2.21 mg/dL H 01/11/25 Urine Creatinine 65.55 mg/dL 01/11/25 Protein/Creatinin Ratio, (<0.2) 3.14 H 01/11/25 Assessment & Plan Assessment & Plan (1) CKD stage 3b, GFR 30-44 ml/min: Code(s): N18.32 - Chronic kidney disease, stage 3b Category: Medical (2) Hypertension: Code(s): I10 - Essential (primary) hypertension Category: Medical Qualifiers: Hypertension type: primary hypertension Qualified Code(s): I10 - Essential (primary) hypertension Plan Gisselle has CKD stage 3b. Her last cr cl by 24 hour urine is 41 mls/mt. Her renal functions are stable. She had a renal biopsy over a decade. I have not seen her gene testing or renal biopsy results. If she has ATTR amyloid, she may be a candidate for Vutisiran. I increased her hydralazine to 100 mg tid and added Isosrbide 30 mg daily. Her BP needs to be less than 130/80 mm of Hg. I did not make any other medication changes today. Answered all questions. Follow up appointment given Medications: New isosorbide mononitrate ER 30 mg PO DAILY 90 tabs 3RF Changed From hydralazine 75 mg (1.5 x 50 mg) PO TID 90 days 405 tabs 3RF To hydralazine 100 mg PO TID 270 tabs 3RF 90 days Coding Level of Care Code Est Pt Level 4 (96354) Diagnoses CKD stage 3b, GFR 30-44 ml/min N18.32 Primary hypertension I10 Hypertension type: primary hypertension
[2025-01-18 11:24] VITALS: BP 163/92; PULSE 69; O2SAT 97; BMI 38.4
--- OUTSIDE RECORDS SUMMARY | 2025-01-18 12:20 | XMS_ITS | Encounter Summary ---
Author Organization [facility], Address [address] [place] [address] Phone Care Team Providers Care Duplicating Machine Servicer Name Role Phone Susan Hodge MD Primary Care Provider [phone] Encounter Details Date Type Department Care Team (Late st Contact Info) Description 04/29/2023 Documentation Only [facility], [address] [place] [address] Susan Hodge MD [address] [phone] Social History Tobacco Use Types Packs/Day Years Used Date Smoking Tobacco: Never Assessed Comments Unknown Sex and Gender Information Value Date Recorded Sex Assigned at Not on file Legal Sex Female 5:15 PM EST Gender Identity Not on file Sexual Orientation Not on file documented as of this encounter Plan of Treatment Not on file documented as of this encounter Visit Diagnoses Not on filedocumented in this encounter Care Teams Duplicating Machine Servicer Relationship Specialty Start Date End Date Susan Hodge MD [address] [phone] PCP - General Internal Medicine 04/28/23 documented as of this encounter
== END 2025-01-18 11:47 | disposition home or self-care (01) ==
LOC: HO.HKAS 10:52
PROVIDERS: PCP Internal Medicine; Visit Provider Internal Medicine Nephrology
DX: N18.32 Chronic kidney disease, stage 3b (principal); I10 Essential (primary) hypertension
CPT/HCPCS: 99214

== ENCOUNTER 2025-02-17 15:04 | Outpatient (AMB) | payer OTHER, SELFPAY ==
--- OUTSIDE RECORDS SUMMARY | 2025-02-17 15:08 | XMS_ITS | Clinical Summary ---
Author Organization [facility] Address [address] [place] [address] Phone Care Team Providers Care Gas Systems Worker Name Role Phone Susan Hodge MD Primary Care Provider [phone] Allergies Active Allergy Reactions Criticality Noted Date Comments Aspirin 02/15/2009 Lisinopril 02/15/2009 Medications calcifediol (Rayaldee) 30 mcg capsule,extended release 24 hr Take 1 capsule by mouth. Active labetaloL (NORMODYNE) 200 mg tablet Take 1 tablet (200 mg total) by mouth. Active loratadine (CLARITIN) 10 mg tablet Take 1 tablet (10 mg total) by mouth 1 (one) time each day. 90 tablet 1 5 Active semaglutide (RYBELSUS) 7 mg tablet Take 1 tablet (7 mg total) by mouth 1 (one) time each day. Take with 4 ounces (1/2 cup) of water on empty stomach, 30 min prior to other medication or food. 90 tablet 3 5 Active atorvastatin (LIPITOR) 10 mg tabletIndications :Essential (primary) hypertension,Type 2 diabetes mellitus with other diabetic kidney complication (CMS/HCC V24, CMS/HCC V28) Take 1 tablet (10 mg total) by mouth 1 (one) time each day. 90 tablet 1 5 Active losartan (COZAAR) 100 mg tablet Take 1 tablet (100 mg total) by mouth 1 (one) time each day. 90 tablet 3 Active glipiZIDE (GLUCOTROL XL) 5 mg 24 hr tablet Take 1 tablet (5 mg total) by mouth 2 (two) times a day. 180 tablet 3 Active hydrALAZINE (APRESOLINE) 25 mg tablet Take 3 tablets (75 mg total) by mouth 3 (three) times a day. Active cloNIDine (CATAPRES) 0.1 mg tablet Take 1 tablet (0.1 mg total) by mouth 2 (two) times a day. 180 each 3 5 Active Active Problems Problem Noted Date Diagnosed Date Bilateral knee pain 09/29/2023 Bilateral wrist pain 06/27/2021 Microalbuminuria 02/22/2019 Hypertension 03/09/2018 Hyperlipidemia 03/09/2018 Type 2 diabetes mellitus wit h renal manifestations ([facility] V24, [facility] V28) 03/09/2018 Vitamin D deficiency 03/09/2018 Allergic rhinitis 12/05/2014 Encounters Date Type Department Care Team Description 01/27/2025 10:44 AM EDT - 01/27/2025 11:59 PM EDT Hospital Encounter [facility] CT Scan [address] [place] [phone] Ventral hernia without obstruction or gangrene Discharge Disposition: Home or Self Care 01/11/2025 9:30 AM EDT Consult General Surgery - [place] 175 [facility] [address] [place] [phone] Moshe Healy, Ventral hernia without obstruction or gangrene (Primary Dx) 12/02/2024 7:58 AM EDT - 12/02/2024 11:59 PM EDT Hospital Encounter [facility] Ultrasound [address] [place] [phone] Periumbilical mass Discharge Disposition: Home or Self Care 11/23/2024 Telephone Internal Medicine - [place] 175 [facility] [address] [place] [phone] Nikolai Dill MA Labs Only from Last 3 Months Surgical History Surgery Date Site/Laterality Comments TONSILLECTOMY PROCEDURE: HISTORICAL TONSILLECTOMY HAND SURGERY PROCEDURE: HISTORICAL HAND SURGERY Medical History Medical History Date Comments Microalbuminuria 02/22/2019 DX:Microalbumin uria Allergic rhinitis 12/05/2014 DX:Allergic rh initis Hyperlipidemia 03/09/2018 DX:Hyperlipidemi a Hypertension 03/09/2018 DX:Hypertension Type 2 diabetes mellitus wit h renal manifestations ([facility] V24, [facility] V28) 03/09/2018 DX:Type 2 diabetes mellitus with renal manifestations ([facility]) Vitamin D deficiency 03/09/2018 DX:Vitamin D deficiency Severe obesity (BMI 35.0-35. 9 with comorbidity) ([facility] V24, [facility] V28) 02/22/2019 DX:Severe obes ity (BMI 35.0- 35.9 with comorbidity) ([facility]) Bilateral knee pain DX:Bilateral knee pain Social History Tobacco Use Types Packs/Day Years Used Date Smoking Tobacco: Never Smokeless Tobacco: Never Tobacco Cessation:Counseling Given: Not Answered Alcohol Use Standard Drinks/Week Comments No 0 (1 standard drink = 0.6 oz pur e alcohol) Comments Unknown Sex and Gender Information Value Date Recorded Sex Assigned at Female 11/23/2024 2:59 PM EDT Legal Sex Female 2:21 PM EST Gender Identity Female 11/23/2024 2:59 PM EDT Sexual Orientation Straight 11/23/2024 2: 59 PM EDT Obstetrics History Last Filed Vital Signs Vital Sign Reading Time Taken Comments Blood Pressure 194/84 01/11/2025 9:23 AM EDT Pulse 70 01/11/2025 9:23 AM EDT Temperature 36.3 C (97.3 F) 01/11/2025 9:23 AM EDT Respiratory Rate - - Oxygen Saturation 97% 11/16/2024 11:10 AM EDT Inhaled Oxygen Concentration - - Weight 90.7 kg (200 lb) 01/11/2025 9:23 AM EDT Height 157.5 cm (5' 2 ) 01/11/2025 9:23 AM EDT Body Mass Index 36.58 01/11/2025 9:23 AM EDT Plan of Treatment Upcoming Encounters Date Type Department Care Team (Late st Contact Info) Description 03/09/2025 1:30 PM EDT Office Visit Internal Medicine - [place] 175 [facility] [address] [place] [phone] Susan Hodge MD 175 [facility] [address] [place] [phone] 03/15/2025 3:45 PM EDT Office Visit General Surgery - [place] 175 [facility] [address] [place] [phone] Moshe Healy, 175 [facility] [address] [place] [address] Health Maintenance Due Date Last Done Comments Breast Cancer Screening 1963 Diabetes: Annual Foot Exam 1973 DTaP,Tdap,and Td Vaccines (1 - Tdap) 1982 Pneumococcal Vaccine: 50+ Years (1 of 2 - PCV) 1982 Zoster Vaccines (1 of 2) 2013 Colorectal Cancer Screening: Colonoscopy 07/06/2022 HIV Screening 07/06/2022 Hepatitis C Screening 07/06/2022 Social Influencers of Health Screening 07/06/2022 RSV Immunization Adult Patients (1 - Risk 60-74 years 1-dose series) 2023 Diabetes: Annual Urine Albumin-Creatinine Ratio (uACR) 05/30/2023 05/30/2022 Diabetes: Annual Retina Eye Exam 02/01/2024 01/31/2023 COVID-19 Vaccine ( season) 2024 Depression Screening 07/28/2024 Diabetes: Annual GFR (Glomerular Filtration Rate) 12/16/2024 12/17/2023 Hypertension/CHF/CAD Annual BMP Blood Test 12/16/2024 12/17/2023 Influenza Vaccine (#1) 2025 Diabetes: Blood Sugar Control Test (HGBA1C) 05/18/2025 11/16/2024, 12/17/2023, 09/18/2023, Additional history exists Cervical Cancer Screening: Pap Smear 03/07/2026 03/07/2023 Cholesterol Screening (Lipid Panel) 11/16/2029 11/16/2024, 03/21/2023 HIB Vaccines Aged Out No longer [...] patient's age to complete this topic Meningococcal B Vaccine Aged Out No l onger eligible based on patient's age to complete this topic RSV Immunization Patients Under 20 months Aged Out No longer eligible based on patient's age to complete this topic Varicella Vaccines Aged Out No longer eligible based on patient's age to complete this topic Procedures Procedure Name Priority Date/Time Associated Diagnosis Comments CT ABDOMEN PELVIS WO CONTRAST Routine 01/27/2025 10:56 AM EDT Ventral hernia without obstruction or gangrene US ABDOMEN COMPLETE Routine 12/02/2024 9 :17 AM EDT Periumbilical mass FERRITIN Routine 12/02/2024 8:32 AM EDT Anemia, unspecified type IRON AND TIBC Routine 12/02/2024 8:32 AM EDT Anemia, unspecified type HEMOGLOBIN A1C Routine 11/16/2024 12:50 PM EDT Periumbilical mass Essential (primary) hypertension Type 2 diabetes mellitus with other diabetic kidney complication (CMS/HCC V24, CMS/HCC V28) LIPID PANEL WITH REFLEX TO DIRECT LDL Routine 11/16/2024 12:50 PM EDT Periumbilical mass Essential (primary) hypertension Type 2 diabetes mellitus with other diabetic kidney complication (CMS/HCC V24, CMS/HCC V28) HM PAP SMEAR Routine 03/07/2023 from Last 3 Months or Most Recently Relevant to Health Maintenance Results * CT Abdomen Pelvis wo Contrast (01/27/2025 10:56 AM EDT) Anatomical Region Laterality Modality Body Computed Tomogra phy 01/27/2025 12:1 9 PM EDT Impressions 01/27/2025 12:27 PM EDT Large ventral hernia containing nonobstructed transverse colon without strangulation. -------- FINAL REPORT -------- Dictated By: Macie Flanagan Dictated Date: 01/27/2025 12:19 ET Assigned Physician: Macie Flanagan Reviewed and Electronically Signed By: Macie Flanagan Signed Date: 01/27/2025 12:27 ET Workstation ID: [id number] Transcribed By: Self Edit Transcribed Date: 01/27/2025 12:26 ET Narrative 01/27/2025 12:27 PM EDT PROCEDURE: CT Abdomen and Pelvis without contrast INDICATION: hernia ? ventral TECHNIQUE: CT of the abdomen and pelvis without contrast. Multiplanar reformats. The examination was performed utilizing dose reduction techniques. DLP: 1088 mGy/cm COMPARISON: No priors available. FINDINGS: LOWER THORAX: Atelectasis/scarring at the lung bases HEPATOBILIARY: No suspicious liver lesion. Cholecystectomy. SPLEEN: No splenomegaly. PANCREAS: No focal mass or ductal dilatation. ADRENALS: No nodules. KIDNEYS/URETERS: A few low-density lesions too small to characterize. No hydronephrosis or renal calculus. Tiny hyperdense cyst on the right. PELVIC ORGANS/BLADDER: Unremarkable. PERITONEUM / RETROPERITONEUM: No ascites or free air. No retroperitoneal lymphadenopathy. VESSELS: Scattered atherosclerotic calcifications throughout the aorta and its major branches. No aneurysm. GI TRACT: Mild distal esophageal thickening. There is thickening of the cecum presumably related to underdistention. There is a large ventral hernia containing transverse colon. There is no obstruction. BONES AND SOFT TISSUES: Scattered degenerative changes seen throughout the bones. No acute fracture. Anterolisthesis of L4 and L5. Spinal stenosis and neuroforaminal narrowing at this level. Large ventral hernia containing transverse colon with defect measuring approximately 3.8 cm and hernia sac measuring 10 x 5.3 cm and 7.6 cm craniocaudal. Procedure Note Macie Flanagan MD - 01/27/2025 PROCEDURE: CT Abdomen and Pelvis without contrast INDICATION: hernia ? ventral TECHNIQUE: CT of the abdomen and pelvis without contrast. Multiplanarreformats. The examination was performed utilizing dose reductiontechniques. DLP: 1088 mGy/cm COMPARISON: No priors available. FINDINGS: LOWER THORAX: Atelectasis/scarring at the lung bases HEPATOBILIARY: No suspicious liver lesion. Cholecystectomy. SPLEEN: No splenomegaly. PANCREAS: No focal mass or ductal dilatation. ADRENALS: No nodules. KIDNEYS/URETERS: A few low-density lesions too small to characterize. Nohydronephrosis or renal calculus. Tiny hyperdense cyst on the right. PELVIC ORGANS/BLADDER: Unremarkable. PERITONEUM / RETROPERITONEUM: No ascites or free air. No retroperitoneallymphadenopathy. VESSELS: Scattered atherosclerotic calcifications throughout the aorta andits major branches. No aneurysm. GI TRACT: Mild distal esophageal thickening. There is thickening of thececum presumably related to underdistention. There is a large ventralhernia containing transverse colon. There is no obstruction. BONES AND SOFT TISSUES: Scattered degenerative changes seen throughout thebones. No acute fracture. Anterolisthesis of L4 and L5. Spinal stenosisand neuroforaminal narrowing at this level. Large ventral herniacontaining transverse colon with defect measuring approximately 3.8 cm andhernia sac measuring 10 x 5.3 cm and 7.6 cm craniocaudal. IMPRESSION: Large ventral hernia containing nonobstructed transverse colon withoutstrangulation. -------- FINAL REPORT -------- Dictated By: Macie Flanagan Dictated Date: 01/27/2025 12:19 ET Assigned Physician: Macie Flanagan Reviewed and Electronically Signed By: Macie Flanagan Signed Date: 01/27/2025 12:27 ET Workstation ID: [id number] Transcribed By: Self Edit Transcribed Date: 01/27/2025 12:26 ET us Moshe Healy DO IMG CT PROCEDURES Final Result * US Abdomen Complete (12/02/2024 9:17 AM EDT) Anatomical Region Laterality Modality Body Ultrasound 12/03/2024 6:36 AM EDT Impressions 12/03/2024 6:39 AM EDT In the area of clinical concern there is an abdominal wall hernia which contains bowel. -------- FINAL REPORT -------- Dictated By: Tommy Gill Dictated Date: 12/03/2024 06:36 ET Assigned Physician: Tommy Gill Reviewed and Electronically Signed By: Tommy Gill Signed Date: 12/03/2024 06:39 ET Workstation ID: [id number] Transcribed By: Self Edit Transcribed Date: 12/03/2024 06:36 ET Narrative 12/03/2024 6:39 AM EDT EXAMINATION: US , ABDOMINAL WALL CLINICAL INFORMATION: Abdominal mass. Lump left paraumbilical region COMPARISON: None. TECHNIQUE: High-frequency linear transducer examination with attention to the area of clinical concern The examination is targeted to the abdominal wall anteriorly near the midline. There is a skin incision/surgical scar present. FINDINGS: QUALITY: Adequate The study is abnormal. There are right echoes with shadowing which protrude through the abdominal wall fascia or there is eventration of the midline abdominal wall musculature. This has the sonographic signature of bowel. This measures at least 9.2 cm in length. No suspicious fluid collection. No definite bowel wall thickening. Procedure Note Tommy Gill MD - 12/03/2024 EXAMINATION: US , ABDOMINAL WALL CLINICAL INFORMATION: Abdominal mass. Lump left paraumbilical region COMPARISON: None. TECHNIQUE: High-frequency linear transducer examination with attention to the area ofclinical concern The examination is targeted to the abdominal wall anteriorly near themidline. There is a skin incision/surgical scar present. FINDINGS: QUALITY: Adequate The study is abnormal. There are right echoes with shadowing whichprotrude through the abdominal wall fascia or there is eventration of themidline abdominal wall musculature. This has the sonographic signature ofbowel. This measures at least 9.2 cm in length. No suspicious fluid collection. No definite bowel wall thickening. IMPRESSION: In the area of clinical concern there is an abdominal wall hernia whichcontains bowel. -------- FINAL REPORT -------- Dictated By: Tommy Gill Dictated Date: 12/03/2024 06:36 ET Assigned Physician: Tommy Gill Reviewed and Electronically Signed By: Tommy Gill Signed Date: 12/03/2024 06:39 ET Workstation ID: [id number] Transcribed By: Self Edit Transcribed Date: 12/03/2024 06:36 ET Susan Hodge MD IM US PROCEDURES Final Result * Iron and TIBC (12/02/2024 8:32 AM EDT) Pathologist [facility] Iron 49 40 - 150 mcg/dL LAB CHEMISTRY METHOD 12/02/2024 10:03 AM EDT [facility] TIBC 317 250 - 450 mcg/dL LAB CHEMISTRY METHOD 12/02/2024 10:03 AM EDT [facility] Iron Saturation 15 15 - 50 % LAB CHEMISTRY METHOD 12/02/2024 10:03 AM EDT [facility] Blood Venous blood specimen / Unknown Venipuncture / Unknown 12/02/2024 8:32 AM EDT 12/02/2024 8:47 AM EDT Susan Hodge MD LAB BLOOD ORDERABLES Final Res ult [facility] [address] [place] [address], [place] [phone] * Ferritin (12/02/2024 8:32 AM EDT) [facility] Ferritin 54 8 - 252 ng/mL LAB CHEMISTRY METHOD 12/02/2024 10:03 AM EDT [facility] Blood Venous blood specimen / Unknown Venipuncture / Unknown 12/02/2024 8:32 AM EDT 12/02/2024 8:47 AM EDT Susan Hodge MD LAB BLOOD ORDERABLES Final Res ult [facility] [address] [place] [address], [place] [phone] * Lipid panel with reflex to direct LDL (11/16/2024 12:50 PM EDT) [facility] Cholesterol 141 0 - 200 mg/dL LAB CHEMISTRY METHOD 11/16/2024 2:37 PM EDT [facility] Triglycerides 52 0 - 150 mg/dL LAB CHEMISTRY METHOD 11/16/2024 2:37 PM EDT [facility] HDL 50 >=40 mg/dL LAB CHEMISTRY METHOD 11/16/2024 2:37 PM EDT [facility] LDL Calculated 81 0 - 100 mg/dL LAB CHEMISTRY METHOD 11/16/2024 2:37 PM EDT [facility] VLDL Cholesterol Maximino 10.4 mg/dL LAB CHEMISTRY METHOD 11/16/2024 2:37 PM EDT [facility] Non HDL Chol. (LDL+VLDL) 91 <145 mg/dL LAB CHEMISTRY METHOD 11/16/2024 2:37 PM EDT [facility] Chol/HDL Ratio 2.8 0.0 - 4.4 LAB CHEMISTRY METHOD 11/16/2024 2:37 PM EDT [facility] Blood Venous blood specimen / Unknown Venipuncture / Unknown 11/16/2024 12:50 PM EDT 11/16/2024 1:31 PM EDT us Susan Hodge MD LAB BLOOD ORDERABLES Final Res ult [facility] [address] [place] [address], * Hemoglobin A1c (11/16/2024 12:50 PM EDT) Hemoglobin A1C 5.9 <6.5 % LAB CHEMISTRY METHOD 11/16/2024 10:39 PM EDT [facility] Mean Bld Glu Estim. 123 mg/dL LAB CHEMISTRY METHOD 11/16/2024 10:39 PM EDT [facility] Blood Venous blood specimen / Unknown Venipuncture / Unknown 11/16/2024 12:50 PM EDT 11/16/2024 1:32 PM EDT Susan Hodge MD LAB BLOOD ORDERABLES Final Res ult [facility] [address] [place] [address], * Pap Smear (03/07/2023) Pap smear Negative Historical Provider HEALTH MAINTENANCE Final Result from Last 3 Months or Most Recently Relevant to Health Maintenance Insurance [facility] [address] [place] [address] Care Teams Gas Systems Worker Relationship Specialty Start Date End Date Susan Hodge MD 175 [facility] [address] [place] [phone] PCP - General Internal Medicine 07/19/20
--- OUTSIDE RECORDS SUMMARY | 2025-02-17 15:08 | XMS_ITS | Encounter Summary ---
Author Organization [facility], Address [address] [place] [address] Phone Care Team Providers Care Aquarium Tank Attendant Name Role Phone Susan Hodge MD Primary Care Provider [phone] Encounter Details Date Type Department Care Team (Late st Contact Info) Description 04/29/2023 Documentation Only [facility], [address] [place] [address] Susan Hodge MD [address] [phone] Social History Tobacco Use Types Packs/Day Years [...] on filedocumented in this encounter Care Teams Aquarium Tank Attendant Relationship Specialty Start Date End Date Susan Hodge MD [address] [phone] PCP - General Internal Medicine 04/28/23 documented as of this encounter
--- OUTSIDE RECORDS SUMMARY | 2025-02-17 15:08 | XMS_ITS | Data Portability ---
Author Organization [facility], [facility] Address [address] [place] [address] Care Team Providers Care Ceramic Artist Name Role Phone BRITTANY CASTANEDA Primary Care Provider Assessment Encounter Date Assessment Date Assessment LastModified by Organization Details LastModified Time 09/27/2024 09/27/2024 Assessment: pt knee flexion ROM at plateau function improving is now able to ascend stairs with reciprocal gait Plan Continue Poc [email or web address] Not available 09/27/2024 11:00:27 09/30/2024 09/30/2024 Assessment: pt knee flexion ROM at plateau function improving is now able to ascend stairs with reciprocal gait Plan Continue Poc [email or web address] Not available 09/30/2024 05:42:09 10/07/2024 10/07/2024 Assessment: pt knee flexion ROM at plateau function improving is now able to ascend stairs with reciprocal gait Plan Continue Poc [email or web address] Not available 10/07/2024 09:29:44 10/12/2024 10/12/2024 Assessment: pt knee flexion ROM at plateau function improving is now able to ascend stairs with reciprocal gait Plan pt dc with IND HEP [email or web address] Not available 10/12/2024 19:01:00 11/03/2024 11/03/2024 PROBLEM: Status post Left total knee arthroplasty performed on 07/06/24 with poor pre and postoperative motion HPI: Patient returns today for follow-up of their total knee arthroplasty. They report they have returned to most activities of daily living. The patient has no specific concerns today in the office. They have completed outpatient physical therapy. The patient continues to ambulate with a cane at work. She has noticed a bit of stiffness in her knee. She is completed outpatient physical therapy. She notes a corticosteroid in her right knee. But she had a very painful. The patient does have ongoing right knee osteoarthritis symptoms. Past family, medical, social history and review of systems has been reviewed, updated and is located in the patient s chart. EXAM: The patient ambulates with a non-antalgic gait. The surgical wound is well-healed. There is no erythema, redness, or signs of infection. Left knee range of motion 10-95. There is no significant sub-patellar crepitus. There is expected postoperative swelling but no significant effusion. The knee is stable to varus and valgus loading at 0 and 90 without evidence of significant instability. The patient's right knee range of motion is 0 to 95 degrees. IMAGING: Previously obtained X-rays reviewed in the office today on [facility] PACS: Weightbearing AP of both knees, lateral of the left knee, and sunrise view of both knees demonstrate; Show appropriate position of the patient's left total knee arthroplasty. Overall limb alignment is neutral. Implant position is satisfactory. Patellar tracking is midline. Bone implant interfaces are intact and no evidence of fracture or osteolysis there is evidence of end-stage osteoarthritis of the right knee with [id number] articulation IMPRESSION: Status post Left total knee arthroplasty PLAN: I am concerned about the patient's motion of her left knee at this point. However, her right knee flexion is also limited. Patient is requested to return to physical therapy 1 day a week. Will give her a referral for this. Patient requesting antibiotics prior to dental work. She was sent. I really encouraged the patient to continue to work on range of motion at home. Specifically working on terminal extension. The patient would like to avoid ongoing treatment for her right knee issues found corticosteroid painful. Work note was given to all patient continue working with a cane. She should limit standing for less than 20 minutes. She should have frequent position changes. No kneeling. She will return to the office in 3 months time for recheck with one of the PAs. I encouraged them to return to the office periodically for routine follow-up; sooner if any issues arise. I attempted to answer all of their questions today in the office. [email or web address] speech recognition tonal regulator software was used to create portions of this document. An attempt at proofreading has been made to minimize errors. Please call for corrections. [email or web address] Not available 11/03/2024 13:52:50 Plan of Treatment Reminders Order Date Submit Date Provider Last Modified By Organization Details Last Modified Time Details Appointments RECHECK 15 2024 09:45A M Enriqueta Gonzalez PA-C Not available Not available Not available Lab None recorded. Referral physical therapist referral - PT for ROM 2024 025 [email or web address] Not available 11/12/2024 10:18:29 Procedures None recorded. Surgeries None recorded. Imaging None recorded. Medication Orders None recorded. Patient TargetsNo targets recorded. Patient InstructionsNo instructions recorded. Reason for Referral Physical Therapist Referral for History of left total knee replacement PT for ROM Referring Physician: Peewee Corral, Orthopedic Surgery, Encounter Date: 11/03/2024 Problems Name Problem SNOMED Code Status Onset Date Resolution Date Notes Provider Name and Address Organization Details Recorded Time Bilateral osteoarthri tis of knees [id number] 07 Active 2023 Peewee Corral MD [address], [place], [address], [facility] 4 11:34:23 Surgical follow-up [id number] Active 2023 Marlon Martinez, PT [address], [place], [address], [facility] - [facility] 4 12:05:53 History of left total knee replacement [id number] 105 Active 2023 Marlon Martinez, PT [address], [place], [address], [facility] 4 12:05:55 Postoperati ve pain 845768670 Active 2024 Emily King APRN [address], [place], [address], [facility] 5 11:22:08 Problem Notes None recorded. Procedures Surgical History Date Name Laterality Status Provider Name and Address Organization Details Recorded Time 5 01886 Therapeutic Exercise (1:1) cancelled Lisa Debimynor, FLOUR INSPECTOR [address], [place], [address], [facility] 11/29/2024 10:13:50 5 25609: Hot or Cold Pack cancelled Lisa Debimynor, FLOUR INSPECTOR [address], [place], [address], [facility] 11/29/2024 10:13:50 5 13384: Manual therapy cancelled Lisa Debimynor, FLOUR INSPECTOR [address], [place], [address], [facility] 11/29/2024 10:13:50 5 70900 Therapeutic Exercise (1:1) completed Marlon Martinez, PT [address], [place], [address], [facility] 10/11/2024 16:46:20 5 06423: Hot or Cold Pack completed Marlon Martinez, PT [address], [place], [address], [facility] 10/11/2024 16:46:20 5 25031: Manual therapy completed Marlon Martinez, PT [address], [place], [address], [facility] 10/11/2024 16:46:20 5 26880 Therapeutic Exercise (1:1) completed Marlon Martinez, PT [address], [place], [address], [facility] 10/07/2024 09:29:48 5 82085: Hot or Cold Pack completed Marlon Martinez, PT [address], [place], [address], [facility] 10/07/2024 09:29:48 5 05626: Manual therapy completed Marlon Martinez, PT [address], [place], [address], [facility] 10/07/2024 09:29:48 5 89956 Therapeutic Exercise (1:1) completed Marlon Martinez, PT [address], [place], [address], [facility] 09/30/2024 05:42:15 5 74674: Hot or Cold Pack completed Marlon Martinez, PT [address], [place], [address], [facility] 09/30/2024 05:42:14 5 75696: Manual therapy completed Marlon Martinez, PT [address], [place], [address], [facility] 09/30/2024 05:42:15 5 29223 Therapeutic Exercise (1:1) completed Marlon Martinez, PT [address], [place], [address], [facility] 09/26/2024 18:47:11 5 66014: Hot or Cold Pack completed Marlon Martinez, PT [address], [place], [address], [facility] 09/26/2024 18:47:11 5 01578: Manual therapy completed Marlon Martinez, PT [address], [place], [address], [facility] 09/26/2024 18:47:11 5 54926 Therapeutic Exercise (1:1) completed aMkayla Tolentino FLOUR INSPECTOR [address], [place], [address], [facility] 09/23/2024 10:21:01 5 45798: Hot or Cold Pack completed Makayla Tolentino FLOUR INSPECTOR [address], [place], [address], [facility] 09/23/2024 10:21:00 5 89348: Manual therapy completed Makayla Tolentnio, FLOUR INSPECTOR [address], [place], [address], [facility] 09/23/2024 10:21:01 5 28171 Therapeutic Exercise (1:1) completed Marlon Martinez, PT [address], [place], [address], [facility] 09/21/2024 04:02:58 5 83234: Hot or Cold Pack completed Marlon Martinez, PT [address], [place], [address], [facility] 09/21/2024 04:02:58 5 96555: Manual therapy completed Marlon Martinez, PT [address], [place], [address], [facility] 09/21/2024 04:02:58 5 66938 Therapeutic Exercise (1:1) cancelled Marlon Martinez, PT [address], [place], [address], [facility] 09/12/2024 17:18:30 5 19097: Hot or Cold Pack cancelled Marlon Martinez, PT [address], [place], [address], [facility] 09/12/2024 17:18:30 5 67084: Manual therapy cancelled Marlon Martinez, PT [address], [place], [address], [facility] 09/12/2024 17:18:30 5 62602 Therapeutic Exercise (1:1) completed Marlon Martinez, PT [address], [place], [address], [facility] 09/09/2024 09:11:32 5 36668: Hot or Cold Pack completed Marlon Martinez, PT [address], [place], [address], [facility] 09/09/2024 09:11:32 5 12027: Manual therapy completed Marlon Martinez, PT [address], [place], [address], [facility] 09/09/2024 09:11:32 5 53393 Therapeutic Exercise (1:1) completed Makayla Tolentino, FLOUR INSPECTOR [address], [place], [address], [facility] 09/07/2024 13:27:51 5 89863: Hot or Cold Pack completed Makayla Tolentino, FLOUR INSPECTOR [address], [place], [address], [facility] 09/07/2024 13:27:51 5 80786: Manual therapy completed Makayla Tolentino, FLOUR INSPECTOR [address], [place], [address], [facility] 09/07/2024 13:27:51 5 72020 Therapeutic Exercise (1:1) completed Makayla Tolentino FLOUR INSPECTOR [address], [place], [address], [facility] 09/03/2024 11:15:58 5 55977: Hot or Cold Pack completed Makayla Tolentino FLOUR INSPECTOR [address], [place], [address], [facility] 09/03/2024 11:15:58 5 08617: Manual therapy completed Makayla Tolentino FLOUR INSPECTOR [address], [place], [address], [facility] 09/03/2024 11:15:59 5 70299 Therapeutic Exercise (1:1) completed Marlon Martinez, PT [address], [place], [address], [facility] 08/26/2024 06:14:31 5 95843: Hot or Cold Pack completed Marlon Martinez, PT [address], [place], [address], [facility] 08/26/2024 06:14:31 5 62212: Manual therapy completed Marlon Martinez, PT [address], [place], [address], [facility] 08/26/2024 06:14:31 5 93822 Therapeutic Exercise (1:1) completed Marlon Martinez, PT [address], [place], [address], [facility] 08/22/2024 15:58:46 5 93791: Hot or Cold Pack completed Marlon Martinez, PT [address], [place], [address], [facility] 08/22/2024 15:58:46 5 21757: Manual therapy completed Marlon Martinez, PT [address], [place], [address], [facility] 08/22/2024 15:58:46 5 05455 Therapeutic Exercise (1:1) completed Makayla Tolentino, FLOUR INSPECTOR [address], [place], [address], [facility] 08/20/2024 08:55:27 5 00163: Hot or Cold Pack completed Makayla Tolentino FLOUR INSPECTOR [address], [place], [address], [facility] 08/20/2024 08:55:27 5 87781: Manual therapy completed Makayla Tolentino, FLOUR INSPECTOR [address], [place], [address], [facility] 08/20/2024 10:37:03 5 83780 Therapeutic Exercise (1:1) completed Marlon Martinez, PT [address], [place], [address], [facility] 08/16/2024 12:26:48 5 56305: Hot or Cold Pack completed Marlon Martinez, PT [address], [place], [address], [facility] 08/16/2024 12:27:52 5 34233: Manual therapy completed Marlon Martinez, PT [address], [place], [address], [facility] 08/15/2024 16:01:05 5 77534 Therapeutic Exercise (1:1) completed Makayla Tolentino, FLOUR INSPECTOR [address], [place], [address], [facility] 08/12/2024 11:26:19 5 38015: Hot or Cold Pack completed Makayla Tolentino, FLOUR INSPECTOR [address], [place], [address], [facility] 08/12/2024 11:24:52 5 74303: Manual therapy completed Makayla Tolentino, FLOUR INSPECTOR [address], [place], [address], [facility] 08/11/2024 18:44:37 5 79977 Therapeutic Exercise (1:1) completed Makayla Tolentino, FLOUR INSPECTOR [address], [place], [address], [facility] 08/06/2024 16:41:01 5 92167: Hot or Cold Pack completed Makayla Tolentino, FLOUR INSPECTOR [address], [place], [address], [facility] 08/06/2024 16:41:01 5 63365: Manual therapy completed Makayla Tolentino, FLOUR INSPECTOR [address], [place], [address], [facility] 08/06/2024 16:41:01 5 87639 Therapeutic Exercise (1:1) completed Makayla Tolentino FLOUR INSPECTOR [address], [place], [address], [facility] 08/04/2024 18:44:32 5 15127: Hot or Cold Pack completed Makayla Tolentino FLOUR INSPECTOR [address], [place], [address], [facility] 08/04/2024 18:44:32 5 97471: Manual therapy completed Makayla Tolentino FLOUR INSPECTOR [address], [place], [address], [facility] 08/04/2024 18:44:32 5 05779 Therapeutic Exercise (1:1) completed Marlon Martinez, PT [address], [place], [address], [facility] 08/01/2024 18:12:54 5 50038: Hot or Cold Pack completed Marlon Martinez, PT [address], [place], [address], [facility] 08/01/2024 18:12:54 5 84973: Manual therapy completed Marlon Martinez, PT [address], [place], [address], [facility] 08/01/2024 18:12:54 5 00014 Therapeutic Exercise (1:1) completed Newton King FLOUR INSPECTOR [address], [place], [address], [facility] 07/29/2024 13:50:15 5 89160: Hot or Cold Pack completed Newton King, FLOUR INSPECTOR [address], [place], [address], [facility] 07/29/2024 13:50:24 5 46379: Manual therapy completed Newton King, FLOUR INSPECTOR [address], [place], [address], [facility] 07/29/2024 11:41:53 5 66915 Therapeutic Exercise (1:1) cancelled Newton King, FLOUR INSPECTOR [address], [place], [address], [facility] 07/27/2024 13:18:41 5 97696: Hot or Cold Pack cancelled Newtonbernadine King, FLOUR INSPECTOR [address], [place], [address], [facility] 07/27/2024 13:18:41 5 24794: Manual therapy cancelled Newton King, FLOUR INSPECTOR [address], [place], [address], [facility] 07/27/2024 13:18:41 4 71471 Therapeutic Exercise (1:1) cancelled Marlon Martinez, PT [address], [place], [address], [facility] 07/25/2024 13:47:12 4 79414: Hot or Cold Pack cancelled Marlon Martinez, PT [address], [place], [address], [facility] 07/25/2024 13:47:12 4 73130: Manual therapy cancelled Marlon Martinez, PT [address], [place], [address], [facility] 07/25/2024 13:47:12 4 34213 Therapeutic Exercise (1:1) completed Marlon Martinez, PT [address], [place], [address], [facility] 07/22/2024 16:30:26 4 45272: Hot or Cold Pack completed Marlon Martinez, PT [address], [place], [address], [facility] 07/22/2024 16:30:26 4 44167: Manual therapy completed Marlon Martinez, PT [address], [place], [address], [facility] 07/22/2024 16:30:26 4 16913 Therapeutic Exercise (1:1) completed Makayla Tolentino, FLOUR INSPECTOR [address], [place], [address], [facility] 07/22/2024 10:27:03 4 70588: Hot or Cold Pack completed Makayla Tolentino, FLOUR INSPECTOR [address], [place], [address], [facility] 07/22/2024 11:30:35 4 16646: Manual therapy completed Makayla Tolentino, FLOUR INSPECTOR [address], [place], [address], [facility] 07/22/2024 10:27:03 4 20008 Therapeutic Exercise (1:1) completed Marlon Martinez, PT [address], [place], [address], [facility] 07/19/2024 07:05:32 4 53499: Hot or Cold Pack completed Marlon Martinez, PT [address], [place], [address], [facility] 07/19/2024 08:10:19 4 99898: Manual therapy completed Marlon Martinez, PT [address], [place], [address], [facility] 07/19/2024 07:33:47 4 83792 Therapeutic Exercise (1:1) completed Marlon Martinez, PT [address], [place], [address], [facility] 07/16/2024 11:58:03 4 75590: Low complexity PT Eval completed Marlon Martinez, PT [address], [place], [address], [facility] 07/15/2024 18:21:26 4 62900 Therapeutic Exercise (1:1) completed Marlon Martinez, PT [address], [place], [address], [facility] 06/02/2024 12:35:07 4 28579: Gait training completed Marlon Martinez, PT [address], [place], [address], [facility] 06/03/2024 18:00:46 4 64579 Therapeutic Exercise (1:1) completed Marlon Martinez, PT [address] Former[facility] named [facility], [place], [address], [facility] 05/20/2024 15:14:25 4 85289: Low complexity PT Eval completed Marlon Martinez, PT [address] Former[facility] named [facility], [place], [address], [facility] 05/20/2024 15:14:31 Imaging Results None recorded. Procedure Notes None recorded. Medical Equipment None Reported. Allergies Allergen ID Allergen Name Allergen Category Reaction Reaction Severity Criticality Documentation Date Start Date Code Code System Note Provider Name and Address Organization Details Recorded Time 786336 lisinopri l medicatio n Not available Not available Not available 04/30/2024 09138 RxNorm FLOR LARIVIERE [facility], [facility] 08:58:11 431062 aspirin medicatio n Not available Not available Not available 04/30/2024 1191 RxNorm AISSATOU RUIZ [facility], [facility] 10:34:23 Medications Name Sig Start Date Stop Date Status Note LastModified by Organization Details LastModified Time amoxicillin 500 mg capsule 4 pills 1 hour prior to procedure 2024 active Not Available Not Available Not Avai lable clonidine HCl 0.1 mg tablet TAKE 1 TABLET BY MOUTH TWICE A DAY active Not Available Not Available No t Available labetalol 200 mg tablet TAKE 1 TAB ORALLY 2 TIMES A DAY FOR 90 DAYS active Not Available Not Available No t Available atorvastati n 10 mg tablet TAKE 1 TABLET BY MOUTH EVERY DAY active Not Available Not Available No t Available nifedipine ER 90 mg tablet,exte nded release TAKE 1 TABLET BY MOUTH EVERY DAY active Not Available Not Available No t Available ofloxacin 0.3 % eye drops LOCATION: [facility]. ONE DROP INTO THE [facility] FOUR TIMES A DAY 04/30 completed Not Available Not Available Not Available isosorbide mononitrate ER 30 mg tablet,exte nded release 24 hr TAKE 1 TABLET BY MOUTH EVERY DAY active Not Available Not Available No t Available glipizide ER 5 mg tablet, extended release 24 hr TAKE 1 TABLET BY MOUTH TWICE A DAY active Not Available Not Available No t Available hydralazine 25 mg tablet TAKE 1 TABLET BY MOUTH THREE TIMES A DAY 04/30 completed Not Available Not Available Not Available tramadol 50 mg tablet TAKE 1-2 TABLETS EVERY 6 HOURS NEEDED FOR MILD PAIN 11/03 completed Not Available Not Available Not Available TobraDex 0.3 %-0.1 % eye ointment APPLY 1 APPLICATI ON IN LEFT EYE THREE TIMES A DAY NEEDED 04/30 completed Not Available Not Available Not Available hydromorpho ne 2 mg tablet TAKE 1- TABLET BY MOUTH EVERY 6 HOURS FOR 7 DAYS 11/03 completed Not Available Not Available Not Available prednisolon e acetate 1 % eye drops,suspe nsion PLACE ONE DROP INTO THE RIGHT EYE TWICE A DAY 04/30 completed Not Available Not Available Not Available tamsulosin 0.4 mg capsule TAKE 1 CAPSULE BY MOUTH EVERY DAY FOR 14 DAYS 11/03 completed Not Available Not Available Not Available hydralazine 100 mg tablet TAKE 1 TABLET (100 MG )ORALLY 3 TIMES A DAY FOR 90 DAYS active Not Available Not Available No t Available pantoprazol e 40 mg tablet,rekha yed release TAKE 1 TABLET BY MOUTH EVERY DAY 11/03 completed Not Available Not Available Not Available Dilaudid 4 mg tablet Take 0.5-1 tablet Po q6HRS PRN pain 11/03 completed Not Available Not Available Not Available dorzolamide 22.3 mg-timolol 6.8 mg/mL eye drops LOCATION: RIGHT EYE. ONE DROP INTO THE RIGHT EYE TWICE A DAY 04/30 completed Not Available Not Available Not Available hydralazine 50 mg tablet TAKE 1 AND 1/2 TABLETS BY MOUTH 3 TIMES A DAY FOR 90 DAYS active Not Available Not Available No t Available losartan 100 mg tablet TAKE 1 TABLET BY MOUTH 1 TIME EACH DAY. active Not Available Not Available No t Available loratadine 10 mg tablet TAKE 1 TABLET BY MOUTH 1 TIME EACH DAY. active Not Available Not Available No t Available oxycodone 5 mg tablet TAKE 1 TABLET BY MOUTH EVERY 12 HOURS FOR 7 DAYS FOR PAIN 11/03 completed Not Available Not Available Not Available cyclobenzap rine 5 mg tablet Take 1 tablet 3 times a day by oral route for 7 days. 11/03 completed Not Available Not Available Not Available bromfenac 0.09 % eye drops PLACE 1 DROP ONCE DAILY TO THE RIGHT EYE 14 WEEKS DIRECTED 04/30 completed Not Available Not Available Not Available chlorhexidi ne gluconate 0.12 % mouthwash SWISH 15ML X20 SECONDS TWICE A DAY THEN SPIT. NO EATING/DR INKING X30 MINUTES AFTER 04/30 completed Not Available Not Available Not Available cholecalcif lara (vitamin D3) 50 mcg (2,000 unit) capsule TAKE 1 CAPSULE BY MOUTH EVERY DAY 04/30 completed Not Available Not Available Not Available Vitamin D3 50 mcg (2,000 unit) tablet TAKE 1 TABLET BY MOUTH EVERY DAY 04/30 completed Not Available Not Available Not Available Eliquis 2.5 mg tablet TAKE 1 TABLET BY MOUTH TWO TIMES A DAY 11/03 completed Not Available Not Available Not Available Jardiance 25 mg tablet TAKE 1 TABLET BY MOUTH EVERY DAY 04/30 completed Not Available Not Available Not Available Trulicity 1.5 mg/0.5 mL subcutaneou s pen injector INJECT 1 PEN INTO THE SKIN ONCE WEEKLY 04/30 completed Not Available Not Available Not Available Rybelsus 7 mg tablet PLEASE SEE ATTACHED FOR DETAILED DIRECTION S active Not Available Not Available No t Available Rybelsus 3 mg tablet TAKE 1 TABLET BY MOUTH DAILY. 11/03 completed Not Available Not Available Not Available Trulicity 3 mg/0.5 mL subcutaneou s pen injector INJECT 3 MG INTO THE SKIN ONE TIME PER WEEK 04/30 completed Not Available Not Available Not Available Vitals Date Recorded Body height Body mass index (BMI) Body weight Provider Name and Address Organization Details Last Updated DateTime 11/03/2024 154.94 cm 37.6 kg/m2 34079.88 g Joan Lui ID - [facility] 11/03/2024 13:02:24 Social History None recorded. Functional Status None recorded. Mental Status None recorded. Family History Nothing Reported. Medical History No medical history recorded. Gynecological HistoryNo gynecological history recorded. Obstetrics History GPAL:G 0 P 0 0 0 0 Past Encounters Encounter ID Performer Location Encounter Start Date Encounter Closed Date Diagnosis/Indication Diagnosis SNOMED-CT Code Diagnosis ICD10 Code Diagnosis Note [id number] Chalo Chavez PA-C [facility] [address] [place] [id number] 04/30/2024 08:53:37 05/25/2024 04:00:18 Pain of bilateral knee regions [id number] 47991 M25.561 M25.134 [id number] MD Alexys Apodaca [address] [place] [address] 04/30/2024 09:37:39 05/24/2024 12:25:22 Osteoarthritis of left knee joint 5633067185 00397 M17.12 Bilateral osteoarthritis of knees 6234065324 94350 M17.0 [id number] [facility] [address] [place] [id number] 05/20/2024 16:50:57 05/21/2024 08:14:48 Osteoarthritis of knee 920631943 M17.12 [id number] [facility] [address] [place] [id number] 06/03/2024 16:25:35 06/04/2024 08:18:12 Osteoarthritis of knee 799097957 M17.12 [id number] ERI[facility]ERTO [facility] [address] floor [address] [place] [id number] 07/02/2024 07:27:21 07/21/2024 03:57:44 [id number] Marlon Martinez, PT [facility] [address] [place] [address] 07/16/2024 09:22:43 07/16/2024 13:01:58 History of left total knee replacement 9280249377 182686 Z96.652 Z47.1 Surgical follow-up 52589 4000 Z47.1 Z96.381 [id number] Marlon Martinez, PT [facility] [address] [place] [address] 07/19/2024 06:58:15 07/20/2024 08:10:44 History of left total knee replacement 7838090776 243063 Z96.652 Z47.1 Surgical follow-up 42146 4000 Z47.1 Z96.281 [id number] Opal Caballero, [address] floor [address] [facility] [place] [address] 07/19/2024 13:31:00 08/09/2024 14:34:57 History of operative procedure on knee 496902131 Z96.652 Osteoarthr itis of left knee joint 8794618791 06812 M17.12 [id number] Makayla Tolentino, FLOUR INSPECTOR [facility] [address] [place] [address] 07/22/2024 10:16:15 07/22/2024 11:35:02 History of left total knee replacement 5932653639 572572 Z96.652 Z47.1 Surgical follow-up 51442 4000 Z47.1 Z96.971 [id number] Marlon Martinez, PT [facility] [address] [place] [address] 07/23/2024 11:43:04 07/23/2024 15:09:28 History of left total knee replacement 7939483590 831889 Z96.652 Z47.1 Surgical follow-up 95147 4000 Z47.1 Z96.938 [id number] Newton King, FLOUR INSPECTOR [facility] - [facility] [address] [place] [address] 07/29/2024 12:52:35 07/29/2024 13:53:55 History of left total knee replacement 8660561352 279124 Z96.652 Z47.1 Surgical follow-up 05396 4000 Z47.1 Z96.003 [id number] Marlon Martinez, PT [facility] - [facility] [address] [place] [id number] 08/02/2024 09:25:19 08/02/2024 13:19:07 History of left total knee replacement 2760117718 099917 Z96.652 Z47.1 Surgical follow-up 82109 4000 Z47.1 Z96.268 [id number] ENOC [facility] - [place] [address] [place] [id number] 08/04/2024 12:58:33 08/18/2024 11:28:05 Postoperative visit [id number] Z48.89 [id number] Makayla Tolentino FLOUR INSPECTOR [facility] - [facility] [address] [place] [id number] 08/05/2024 09:50:27 08/05/2024 10:55:53 History of left total knee replacement 5037559046 506442 Z96.652 Z47.1 Surgical follow-up 38309 4000 Z47.1 Z96.380 [id number] Makayla Tolentino FLOUR INSPECTOR [facility] - [facility] [address] [place] [id number] 08/09/2024 10:19:07 08/09/2024 11:50:45 History of left total knee replacement 3161053752 728831 Z96.652 Z47.1 Surgical follow-up 35077 4000 Z47.1 Z96.309 [id number] Makayla Tolentino FLOUR INSPECTOR [facility] - [facility] [address] [place] [id number] 08/12/2024 08:47:10 08/12/2024 11:36:27 History of left total knee replacement 7736710944 174831 Z96.652 Z47.1 Surgical follow-up 80129 4000 Z47.1 Z96.638 [id number] Marlon Martinez, PT [facility] - [facility] [address] [place] [id number] 08/16/2024 09:18:21 08/16/2024 16:20:32 History of left total knee replacement 3630865699 619447 Z96.652 Z47.1 Surgical follow-up 89955 4000 Z47.1 Z96.711 [id number] Makayla Tolentino FLOUR INSPECTOR [facility] - [facility] [address] [place] [address] 08/20/2024 09:26:06 08/20/2024 10:40:29 History of left total knee replacement 3552145988 256366 Z96.652 Z47.1 Surgical follow-up 62001 4000 Z47.1 Z96.805 [id number] Marlon Martinez, PT [facility] - [facility] [address] [place] [id number] 08/23/2024 09:20:44 08/24/2024 08:34:13 History of left total knee replacement 1043472930 651748 Z96.652 Z47.1 Surgical follow-up 97327 4000 Z47.1 Z96.743 [id number] Marlon Martinez, PT [facility] - [facility] [address] [place] [address] 08/26/2024 11:48:54 08/26/2024 15:26:45 History of left total knee replacement 7336290183 867046 Z96.652 Z47.1 Surgical follow-up 60884 4000 Z47.1 Z96.381 [id number] Makayla Tolentino FLOUR INSPECTOR [facility] - [facility] [address] [place] [address] 09/03/2024 10:54:48 09/03/2024 11:58:36 History of left total knee replacement 4982684815 429666 Z96.652 Z47.1 Surgical follow-up 42941 4000 Z47.1 Z96.462 [id number] Makayla Tolentino FLOUR INSPECTOR [facility] - [facility] [address] [place] [address] 09/08/2024 11:52:52 09/08/2024 14:14:22 History of left total knee replacement 6876778625 635233 Z96.652 Z47.1 Surgical follow-up 62044 4000 Z47.1 Z96.464 [id number] Marlon Martinez, PT [facility] - [facility] [address] [place] [address] 09/10/2024 09:22:13 09/10/2024 11:30:18 History of left total knee replacement 9733125997 360019 Z96.652 Z47.1 Surgical follow-up 98192 4000 Z47.1 Z96.049 [id number] Marlon Martinez, PT [facility] - [facility] [address] [place] [address] 09/21/2024 09:19:58 09/21/2024 11:05:35 History of left total knee replacement 2655111302 320133 Z96.652 Z47.1 Surgical follow-up 33035 4000 Z47.1 Z96.877 [id number] Makayla Tolentino, FLOUR INSPECTOR [facility] - [facility] [address] [place] [address] 09/23/2024 11:23:12 09/23/2024 12:16:59 History of left total knee replacement 2880902756 444254 Z96.652 Z47.1 Surgical follow-up 39872 4000 Z47.1 Z96.441 [id number] Marlon Martinez, PT [facility] - [facility] [address] [place] [address] 09/27/2024 09:23:45 09/27/2024 14:58:02 History of left total knee replacement 6591511036 713255 Z96.652 Z47.1 Surgical follow-up 71754 4000 Z47.1 Z96.100 [id number] Marlon Martinez, PT [facility] - [facility] [address] [place] [address] 09/30/2024 16:23:25 10/01/2024 08:21:35 History of left total knee replacement 5048468373 385398 Z96.652 Z47.1 Surgical follow-up 84580 4000 Z47.1 Z96.454 [id number] Marlon Martinez, PT [facility] - [facility] [address] [place] [address] 10/07/2024 16:25:34 10/08/2024 09:59:51 History of left total knee replacement 7132524883 563745 Z96.652 Z47.1 Surgical follow-up 87728 4000 Z47.1 Z96.412 [id number] Marlon Martinez, PT [facility] [address] [place] [id number] 10/12/2024 17:22:09 10/13/2024 08:17:37 History of left total knee replacement 3764911841 971666 Z96.652 Z47.1 Surgical follow-up 63139 4000 Z47.1 Z96.216 [id number] MD MANDY Apodaca 2nd floor [address] [place] [id number] 11/03/2024 12:52:22 11/12/2024 10:18:29 History of left total knee replacement 3188108841 430909 Z96.652 Health Concerns Section Related Observation LastModified by Organization Detai ls LastModified Time None Recorded Concern Status LastModified by Organization Details LastModified Time None Recorded Advance Directives Directive None Recorded Payers Insurance Date Sequence Insurance Name Policy Number Policy Fay Covered Member ID Fay Member ID Guarantor Name 02/05/2025 1 [facility] [id number] 1 Gissellejeff Landa [id number] Gisselle Landa Notes Date Note Type Note Provider Name and Address Organization Details Recorded Time 09/27/2024 text/html Pt rates 4/10 px before PT. pt can now ascend stairs normal unable to descend stairs normal yet Marlon Martinez, PT [address], [place], [address], [facility] 09/27/2024 11:00:42 09/30/2024 text/html Pt rates 4/10 px before PT. pt can now ascend stairs normal unable to descend stairs normal yet Marlon Martinez, PT [address], [place], [address], [facility] 09/30/2024 18:06:36 10/07/2024 text/html Pt rates 4/10 px before PT. pt can now ascend stairs normal unable to descend stairs normal yet Marlon Martinez, PT [address], [place], [address], [facility] 10/07/2024 17:05:43 10/12/2024 text/html Pt rates 2/10 px before PT. pt can now ascend stairs normal unable to descend stairs normal yet Marlon Martinez, PT [address], [place], [address], [facility] 10/12/2024 19:01:36 OBGyn Episode No OBEpisode recorded.
--- NOTE | 2025-02-17 15:10 | HO.NEPHOV ---
Vital Signs 02/17/25 15:12 Height 5 ft 1 in Weight 202 lb 6 oz BMI 38.2 BP 164/70 H Blood Pressure Location Rt brachial Position Sitting Pulse 71 Pulse Source Pulse Oximeter Pulse Oximetry (%) 97 Oxygen Delivery Method Room Air Intake Visit Reasons: 1 [facility] Credit Balance Specialist Required: No Accompanied by: Self / Same As Patient Allergies aspirin Allergy (Verified 02/17/25 15:12) Hives lisinopril Allergy (Verified 02/17/25 15:12) Hives HPI Comments Details: Gisselle was seen in follow up for advanced chronic kidney disease. She is diabetes for a long time but denies any retinopathy. She has cataract and is followed by Ophthalmology. She has history of proteinuria and neuropathy. She had a renal biopsy well over a decade ago, results of which she is unsure of. She had been closely followed up by Dr. Blackwell in the past. She denies any heart failure, CVA, peripheral arterial disease, carotid stenosis, coronary artery disease. She does not check her blood sugar every day. She claimed at her blood pressure usually is at goal. She has not very strict with low-sodium diet. 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 She has been having pedal edema for a long time ( on nifedipine). She has no family history of ESRD or renal transplantation. He has been monitoring about Vutisiran for her ATTR amyloid. Her serum creatinine has been well over 2.0. She has no history of malignancy, sensorineural deafness or autoimmune problems. She does not take any excessive nonsteroidal anti-inflammatories. She is active and employed. She is 2 children, a boy and a girl. Her daughter who is 34 years of age suffering from CIDP. Her last GFR by cr cl was 41 mls/mt PFSH Medical History Allergic rhinitis Type 2 diabetes mellitus with renal manifestations Vitamin D deficiency Hypertension Hyperlipidemia Microalbuminuria Bilateral knee pain Bilateral wrist pain Surgical History Hx of tonsillectomy History of hand surgery Social History Alcohol intake: never Patient Tobacco Use Status: Never used Tobacco Physical Exam Vital Signs: Last Vital Signs Pulse 71 02/17/25 15:12 BP 164/70 H 02/17/25 15:12 Pulse Ox 97 02/17/25 15:12 Oxygen Delivery Method Room Air 02/17/25 15:12 BMI result Body Mass Index 38.2 Const General: comfortable and no acute distress Orientation/consciousness: patient oriented x3 HEENT Head: Yes normocephalic Mouth: Normal oral and palatal mucosa present Eyes EOM: EOMs intact bilaterally Neck Neck: Yes supple Resp Auscultation: clear to auscultation bilaterally Cardio Jugular venous distension: no JVD Rate: regular rate GI Palpation (GI): Soft to palpation Auscultation: normal bowel sounds General: Yes no CVA tenderness Back/Spine/Pelvis Back: no CVA tenderness Skin General skin exam: no rashes or lesions noted Neuro General: patient oriented x3 and moves all extremities Extrem General: Yes no pedal edema Results Reviewed Nephrology Results: Sodium, (135-145) 139 mmol/L 01/11/25 Potassium, (3.3-5.1) 4.5 mmol/L 01/11/25 Chloride, (96-108) 109 mmol/L H 01/11/25 Carbon Dioxide, (22-29) 22 mmol/L 01/11/25 BUN, (9-16) 39 mg/dL H 01/11/25 Creatinine, (0.5-1.4) 2.21 mg/dL H 01/11/25 Urine Creatinine 65.55 mg/dL 01/11/25 Protein/Creatinin Ratio, (<0.2) 3.14 H 01/11/25 Assessment & Plan Assessment & Plan (1) Hypertension: Code(s): I10 - Essential (primary) hypertension Category: Medical Qualifiers: Hypertension type: primary hypertension Qualified Code(s): I10 - Essential (primary) hypertension (2) Proteinuria: Code(s): R80.9 - Proteinuria, unspecified Category: Medical Qualifiers: Proteinuria type: other Qualified Code(s): R80.8 - Other proteinuria (3) Wild-type transthyretin-related (ATTR) amyloidosis: Code(s): E85.82 - Wild-type transthyretin-related (ATTR) amyloidosis Category: Medical (4) CKD stage 3b, GFR 30-44 ml/min: Code(s): N18.32 - Chronic kidney disease, stage 3b Category: Medical Plan Gisselle has CKD stage 3b. Her last cr cl by 24 hour urine is 41 mls/mt. Her renal functions are stable. She had a renal biopsy over a decade. I have not seen her gene testing or renal biopsy results. If she has ATTR amyloid, she may be a candidate for Vutisiran. I increased her Isosrbide to 60 mg daily. I ordered a 24 hour urine collection for protein. Her BP needs to be less than 130/80 mm of Hg. I did not make any other medication changes today. Answered all questions. Follow up appointment given Orders: Orders Protein, 24 Hr Urine Group 6 Weeks E85.82 - Wild-type transthyretin-related (ATTR) amyloidosis, I10 - Essential (primary) hypertension, N18.32 - Chronic kidney disease, stage 3b, R80.8 - Other proteinuria Electrolytes 6 Weeks E85.82 - Wild-type transthyretin-related (ATTR) amyloidosis, I10 - Essential (primary) hypertension, N18.32 - Chronic kidney disease, stage 3b, R80.8 - Other proteinuria Blood Urea Nitrogen 6 Weeks E85.82 - Wild-type transthyretin-related (ATTR) amyloidosis, I10 - Essential (primary) hypertension, N18.32 - Chronic kidney disease, stage 3b, R80.8 - Other proteinuria Creatinine 6 Weeks E85.82 - Wild-type transthyretin-related (ATTR) amyloidosis, I10 - Essential (primary) hypertension, N18.32 - Chronic kidney disease, stage 3b, R80.8 - Other proteinuria Medications: Changed From isosorbide mononitrate ER 30 mg PO DAILY 90 tabs 3RF To isosorbide mononitrate ER 60 mg PO DAILY 90 tabs 3RF 90 days Coding Level of Care Code Est Pt Level 4 (85369) Diagnoses Primary hypertension I10 Hypertension type: primary hypertension Other proteinuria R80.8 Proteinuria type: other Wild-type transthyretin-related (ATTR) amyloidosis E85.82 CKD stage 3b, GFR 30-44 ml/min N18.32
[2025-02-17 15:12] VITALS: BP 164/70; PULSE 71; O2SAT 97; BMI 38.2
== END 2025-02-17 15:37 | disposition home or self-care (01) ==
LOC: HO.HKAS 15:04
PROVIDERS: PCP Internal Medicine; Visit Provider Internal Medicine Nephrology
DX: I10 Essential (primary) hypertension (principal); R80.8 Other proteinuria; E85.82 Wild-type transthyretin-related (ATTR) amyloidosis; N18.32 Chronic kidney disease, stage 3b
CPT/HCPCS: 99214

== ENCOUNTER 2025-03-09 14:50 | Outpatient (REF) | payer OTHER, SELFPAY ==
--- OUTSIDE RECORDS SUMMARY | 2025-03-09 14:59 | XMS_ITS | Encounter Summary ---
Author Organization [facility], Address [address] [place] [address] Phone Care Team Providers Care Rivet Passer Name Role Phone Susan Hodge MD Primary Care Provider [phone] Encounter Details Date Type Department Care Team (Late st Contact Info) Description 04/29/2023 Documentation Only [facility], [address] [place] [address] Susan Hodge MD [address] [phone] Social History Tobacco Use Types Packs/Day Years [...] on filedocumented in this encounter Care Teams Rivet Passer Relationship Specialty Start Date End Date Susan Hodge MD [address] [phone] PCP - General Internal Medicine 04/28/23 documented as of this encounter
== END 2025-03-09 14:51 | disposition home or self-care (01) ==
LOC: HO.HKASLDS 14:50
PROVIDERS: Visit Provider Internal Medicine Nephrology
DX: Z13.89 Encounter for screening for other disorder (principal)

== ENCOUNTER 2025-03-11 11:17 | Outpatient (REF) | payer OTHER, SELFPAY ==
--- OUTSIDE RECORDS SUMMARY | 2025-03-11 11:22 | XMS_ITS | Encounter Summary ---
Author Organization [facility], Address [address] [place] [address] Phone Care Team Providers Care Wind Turbine Design Engineer Name Role Phone Susan Hodge MD Primary Care Provider [phone] Encounter Details Date Type Department Care Team (Late st Contact Info) Description 04/29/2023 Documentation Only [facility], [address] [place] [address] Susan Hodge MD [address] [phone] Social History Tobacco Use Types Packs/Day Years [...] on filedocumented in this encounter Care Teams Wind Turbine Design Engineer Relationship Specialty Start Date End Date Susan Hodge MD [address] [phone] PCP - General Internal Medicine 04/28/23 documented as of this encounter
[2025-03-11 17:57] LABS: Anion Gap 18 (12-20); Blood Urea Nitrogen 50 mg/dL (9-16); Carbon Dioxide 19 mmol/L (22-29); Chloride 106 mmol/L (96-108); Estimated Glomerular Filt Rate 18; Potassium 4.5 mmol/L (3.3-5.1); Sodium 138 mmol/L (135-145)
[2025-03-11 18:11] LABS: Creatinine, mg/dL 48.64
[2025-03-11 19:19] LABS: Total Volume 24 Hour Urine 2300 mL
== END 2025-03-11 11:18 | disposition home or self-care (01) ==
LOC: HO.HKASLDS 11:17
PROVIDERS: Visit Provider Internal Medicine Nephrology
DX: I12.9 Hypertensive chronic kidney disease with stage 1 through stage 4 chronic kidney disease, or unspecified chronic kidney disease (principal); N18.32 Chronic kidney disease, stage 3b; R80.8 Other proteinuria; E85.82 Wild-type transthyretin-related (ATTR) amyloidosis
CPT/HCPCS: 36415; 80051; 82565; 84156; 84520

== ENCOUNTER 2025-07-07 16:06 | Outpatient (AMB) | payer OTHER, SELFPAY ==
[2025-07-07 16:25] VITALS: BP 140/90; PULSE 64; BMI 39.4
--- NOTE | 2025-07-07 16:25 | HO.NEPHOV_ITS ---
Vital Signs 07/07/25 16:25 Height 5 ft 1 in Weight 208 lb 8 oz BMI 39.4 BP 140/90 H Blood Pressure Location Lt brachial Position Sitting Pulse 64 Pulse Source Pulse Oximeter Intake Visit Reasons: 2mon f/u w/labs-LVM Print Project Manager Required: No Accompanied by: Self / Same As Patient Allergies aspirin Allergy (Verified 07/07/25 16:25) Hives lisinopril Allergy (Verified 07/07/25 16:25) Hives HPI Comments Details: Gisselle was seen in follow up for advanced chronic kidney disease. She is diabetes for a long time but denies any retinopathy. She has history of proteinuria and neuropathy. She had a renal biopsy well over a decade ago, results of which she is unsure of. She had been closely followed up by Dr. Blackwell in the past. She denies any heart failure, CVA, peripheral arterial disease, carotid stenosis, coronary artery disease. She does not check her blood sugar every day. She claimed at her blood pressure usually is at goal. She has not very strict with low-sodium diet. 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 She has no family history of ESRD or renal transplantation. Had been monitored about [facility] for her ATTR amyloid. Her serum creatinine has been well over 2.0. She has no history of malignancy, sensorineural deafness or autoimmune problems. She does not take any excessive nonsteroidal anti-inflammatories. She is active and employed. She is 2 children, a boy and a girl. Her last GFR by cr cl was 41 mls/mt [facility] Medical History Allergic rhinitis Type 2 diabetes mellitus with renal manifestations Vitamin D deficiency Hypertension Hyperlipidemia Microalbuminuria Bilateral knee pain Bilateral wrist pain Surgical History Hx of tonsillectomy History of hand surgery Social History Alcohol intake: never Patient Tobacco Use Status: Never used Tobacco Review of Systems Const All systems reviewed & are unremarkable except as noted in HPI and below Physical Exam Vital Signs: Last Vital Signs Pulse 64 07/07/25 16:25 BP 140/90 H 12/11/25 16:25 BMI result Body Mass Index 39.4 Const General: comfortable and no acute distress Orientation/consciousness: patient oriented x3 HEENT Head: Yes normocephalic Mouth: Normal oral and palatal mucosa present Eyes EOM: EOMs intact bilaterally Neck Neck: Yes supple Resp Auscultation: clear to auscultation bilaterally Cardio Jugular venous distension: no JVD Rate: regular rate GI Palpation (GI): Soft to palpation Auscultation: normal bowel sounds General: Yes no CVA tenderness Back/Spine/Pelvis Back: no CVA tenderness Skin General skin exam: no rashes or lesions noted Neuro General: patient oriented x3 and moves all extremities Extrem General: Yes no pedal edema Results Reviewed Nephrology Results: Sodium, (135-145) 138 mmol/L 03/11/25 Potassium, (3.3-5.1) 4.5 mmol/L 03/11/25 Chloride, (96-108) 106 mmol/L 03/11/25 Carbon Dioxide, (22-29) 19 mmol/L L 03/11/25 BUN, (9-16) 50 mg/dL H 03/11/25 Creatinine, (0.5-1.4) 2.63 mg/dL H 03/11/25 Urine Creatinine 65.55 mg/dL 01/11/25 Protein/Creatinin Ratio, (<0.2) 3.14 H 01/11/25 Assessment & Plan Assessment & Plan (1) CKD (chronic kidney disease) stage 4, GFR 15-29 ml/min: Code(s): N18.4 - Chronic kidney disease, stage 4 (severe) Category: Medical (2) Wild-type transthyretin-related (ATTR) amyloidosis: Code(s): E85.82 - Wild-type transthyretin-related (ATTR) amyloidosis Category: Medical (3) Hypertension: Code(s): I10 - Essential (primary) hypertension Category: Medical Qualifiers: Hypertension type: primary hypertension Qualified Code(s): I10 - Essential (primary) hypertension Plan Gisselle has CKD stage 3b. Her last cr cl by 24 hour urine is 41 mls/mt. Her renal functions are fairlystable. She had a renal biopsy over a decade. I have not seen her gene testing or renal biopsy results. If she has ATTR amyloid, she may be a candidate for Vutisiran. Her BP needs to be less than 130/80 mm of Hg. I did not make any other medication changes today.F/U labs ordered. Answered all questions. Follow up appointment given Orders: Orders Protein Creatinine Ratio, Ur Today E85.82 - Wild-type transthyretin-related (ATTR) amyloidosis, I10 - Essential (primary) hypertension, N18.4 - Chronic kidney disease, stage 4 (severe) Blood Urea Nitrogen Today E85.82 - Wild-type transthyretin-related (ATTR) amyloidosis, I10 - Essential (primary) hypertension, N18.4 - Chronic kidney disease, stage 4 (severe) Creatinine Today E85.82 - Wild-type transthyretin-related (ATTR) amyloidosis, I10 - Essential (primary) hypertension, N18.4 - Chronic kidney disease, stage 4 (severe) Electrolytes 3 Months E85.82 - Wild-type transthyretin-related (ATTR) amyloidosis, I10 - Essential (primary) hypertension, N18.4 - Chronic kidney disease, stage 4 (severe) Blood Urea Nitrogen 3 Months E85.82 - Wild-type transthyretin-related (ATTR) amyloidosis, I10 - Essential (primary) hypertension, N18.4 - Chronic kidney disease, stage 4 (severe) Electrolytes Today E85.82 - Wild-type transthyretin-related (ATTR) amyloidosis, I10 - Essential (primary) hypertension, N18.4 - Chronic kidney disease, stage 4 (severe) Creatinine 3 Months E85.82 - Wild-type transthyretin-related (ATTR) amyloidosis, I10 - Essential (primary) hypertension, N18.4 - Chronic kidney disease, stage 4 (severe) Protein Creatinine Ratio, Ur 3 Months E85.82 - Wild-type transthyretin-related (ATTR) amyloidosis, I10 - Essential (primary) hypertension, N18.4 - Chronic kidney disease, stage 4 (severe) Coding Level of Care Code Est Pt Level 4 (24793) Diagnoses CKD (chronic kidney disease) stage 4, GFR 15-29 ml/min N18.4 Wild-type transthyretin-related (ATTR) amyloidosis E85.82 Primary hypertension I10 Hypertension type: primary hypertension
--- OUTSIDE RECORDS SUMMARY | 2025-07-07 23:15 | XMS_ITS | Patient Health Record ---
Author Organization [facility] Address [address] [place] [address] Care Team Providers Care Compress Engineer Name Role Phone TONYA JOSE, BRITTANY Primary Care Provider Unavailab ANSON Maddox Unavailable [phone] Allergies Allergen (clinical drug ingredient) Drug/Non Drug Allergy documented on EMR Reaction Allergy Type Onset Date Status aspirin Aspirin pruritis Drug Allergy Active lisinopril Lisinopril pruritis Drug Allergy Activ e Reason For Referral No Information Medications Medication SIG (Take, Route, Frequency, Duration) Notes Start Date End Date Status Labetalol HCl 200 MG Tablet 1 tab(s) orally 2 times a day; Duration: 30 day(s) Active Simvastatin 20 MG Tablet 1 tab(s) orally at bedtime Active Losartan Potassium 50 MG Tablet 1 tab(s) orally QD Active Vitamin D3 50 MCG (2000 UT) Capsule 1 capsule Orally Once a day; Duration: 30 day(s) Active NIFEdipine ER 60 MG Tablet Extended Release 24 Hour 1 tablet on an empty stomach Orally Once a day; Duration: 30 day(s) Active glipiZIDE ER 5 MG Tablet Extended Release 24 Hour 1 tab before breakfast and 1 tabs before dinner Orally Once a day before dinner; Duration: 90 days Active Trulicity 1.5 MG/0.5ML Solution Pen-injector INJECT 1 PEN SUBCUTANEOUSLY ONCE WEEKLY; Duration: 84 Active Social History Tobacco Use: Social History Observation Description Date Details (start date - stop date) Never Smoker NA - NA Social History Tobacco Use: Social Info Question Answer Notes Smoking Are you a: never smoker Additional Details Category Social Info Options Details General 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 Past year's travels: None alcohol use: no drug use: No Coffee/Tea/Soda: yes Coffee 2/day, S frances multiple/day Marital Status in 2019 ( went missing for months, body found, cause of unknown) Living with 16 yo son and 30 yo dtr and her family smokers in household no pt never sm sara Problems Problem Type SNOMED Code ICD Code Onset Dates Problem Status W/U Status Risk Notes Problem Diabetes mellitus type II (73335851) Diabetes mellitus type II (250.00) Active confirmed Problem Essential hypertension (33236769) HTN [Hypertension] (401.9) Active confirmed Problem Sacroiliitis (29075154) Sacroiliitis (720.2) Active confirmed Problem 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) Active confirmed Problem Hypercholesterolemia (62347521) Hypercholesterolemia (272.0) Active confirmed Problem Proteinuria (73207658) Proteinuria (791.0) Active confirmed Problem Diabetic renal disease (395312658) Diabetes mellitus type 2 w/renal manifestations, not stated as uncontrolled (250.40) Active confirmed Problem Type II diabetes mellitus uncontrolled (863305948) Diabetes mellitus type 2 with renal manifestations, uncontrolled (250.42) Active confirmed Low Problem Medication monitorin g (450731061) Medication monitoring (V58.69) Active confirmed Problem Osteoarthritis (636781431) osteoarthritis (715.90) Active confirmed Problem Diabetic renal disease (688195807) 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 METABOLIC 12/18/2018 Insurance Providers Payer Name Payer Address Payer Phone Subscriber Number Group Number Insured Name Patient Relationship to Insured Coverage Start Date Coverage End Date [facility] [address] [place] [id number] HUDSON SolorzanoGRAEME Self - patient is the insured 8 Medical (General) History Medical History History ICD Code proteinuria-sees Dr Blackwell. secondary HPT. Wosening creat from 1.2 to 2.7 by 01/15 T2 DM, Dx 2006, prior GDM with 2nd PG. 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 gastroparesi s L heal spur Surgical History Surgery Date(Month/Year) vericose vein removal- left leg 08/2013 cholecystectomy
--- OUTSIDE RECORDS SUMMARY | 2025-07-07 23:15 | XMS_ITS | Data Portability ---
Author Organization [facility], [facility] Address [address] [place] [address] Care Team Providers Care Grab Jack Man Name Role Phone BRITTANY CASTANEDA Primary Care Provider [phone] Assessment Encounter Date Assessment Date Assessment LastModified by Organization Details LastModified Time 09/30/2024 09/30/2024 Assessment: pt knee flexion ROM at plateau function improving is now able to ascend stairs with reciprocal gait Plan Continue Poc Not available 09/30/2024 05:42:09 10/07/2024 10/07/2024 Assessment: pt knee flexion ROM at plateau function improving is now able to ascend stairs with reciprocal gait Plan Continue Poc [email or web address] Not available 10/07/2024 09:29:44 10/12/2024 10/12/2024 Assessment: pt knee flexion ROM at plateau function improving is now able to ascend stairs with reciprocal gait Plan pt dc with IND HEP [email or web address] Not available 10/12/2024 19:01:00 11/03/2024 11/03/2024 PROBLEM: [...] end-stage osteoarthritis of the right knee with yriu-ii-ydvu articulation IMPRESSION: Status post Left total knee [...] of their questions today in the office. [employer] speech recognition cake winder software was used to create portions of this document. An attempt at proofreading has been made to minimize errors. Please call for corrections. [email or web address] Not available 11/03/2024 13:52:50 Plan of Treatment Reminders Order Date Submit Date Provider Last Modified By Organization Details Last Modified Time Details Appointments None recorded. Lab None recorded. Referral physical therapist referral - PT for ROM 2024 025 [email or web address] Not available 10:18:29 Procedures None recorded. Surgeries None recorded. Imaging XR, knee, 3 view - RM 205 Bilat knee 2024 025 [email or web address] [facility] Office, [address], [facility] [address], [place], [address], 5 20:40:35 Medication Orders None recorded. Patient TargetsNo targets recorded. Patient InstructionsNo instructions recorded. Reason for Referral Physical Therapist Referral for History of left total knee replacement PT for ROM Referring Physician: Peewee Corral, Orthopedic Surgery, Encounter Date: 11/03/2024 Results Created Date Observation Date Name Description Value Unit Range Abnormal Flag Note LastModifiedBy Organization Detail LastModifiedTime 03/11/2003/11/2025 XR, knee, 3 view http:/ [email or web address] ?Encry pted=s hAaTro YD8dLq bEUv6g %2BXZw aYqtaq 0bqfl% 2Fg9IQ a4ajBk vP9nXo QUaueC m3YtLR FvZlgJ JJ8mAn HZtai3 2o3070 AC0Klb 3yEV6a iKiQtr MwF INTERFACE [facility] [address], [place], [address], 03/11/2025 10:11:19 03/11/20 25 03/11/2025 XR, knee, 3 view http:/ [email or web address] ?Encry pted=s hAaTro YD8dLq bEUv6g %2BXZw aYqtaq 0bqfl% 2Fg9IQ a4ajBk vP9nXo QUaueC m3YtLR FvZlgJ JJ8mAn HZtai3 2s0104 AC0Klb 3yEV6a iKiQtr MwF INTERFACE [facility] [address], [place], [address], 03/11/2025 10:11:21 Result Notes Documentation Provider Name and Address Organization Details Recorded Time Xr, Knee, 3 View : [email or web address] Encrypted=flVbYzaPK8hFvfH Uv6g%0TMHhnRtmbp1gaes%2Fg 3CBt1mnGwmM7nWkIMpipWd4Km ZMRvWneUKU5fDpVKadf13y099 7LR7Psy6lOJ9muRxBxzFkP Not Available [facility] 03/11/2025 10:11: 20 Xr, Knee, 3 View : [email or web address] Encrypted=ifHnSraGF6mFapB Uv6g%8ZGKzkXnemu6klxa%2Fg 0PXy9kvQfuM6zMvEKibmJh8Go WAOjCkhEYL8vEpFFxvm51g118 1AQ4Cnq7cNK1rrVqOskOhO Not Available [facility] 03/11/2025 10:11: 21 Problems Name Problem SNOMED Code Status Onset Date Resolution Date Notes Provider Name and Address Organization Details Recorded Time Bilateral osteoarthri tis of knees 7382274395234 07 Active 2023 Peewee Corral MD [address], [place], [address], [facility] 4 11:34:23 Surgical follow-up 744503077 Active 2023 Marlon Martinez, PT [address], [place], [address], [facility] 4 12:05:53 History of left total knee replacement 2540670434156 105 Active 2023 Marlon Martinez PT [address], [place], [address], [facility] 4 12:05:55 Postoperati ve pain 472495469 Active 2024 Emily King APRN [address], [place], [address], [facility] 5 11:22:08 Pain of bilateral knee regions 2229528702935 02 Active 2024 [facility] 5 09:57:31 Osteoarthri tis of right knee joint 1646744527643 00 Active 2024 Enriqueta Gonzalez PA-C [address], [place], [address], [facility] 5 10:05:26 Problem Notes None recorded. Procedures Surgical History Date Name Laterality Status Provider Name and Address Organization Details Recorded Time Knee Kenalog 1cc L/R completed Enriqueta Gonzalez PA-C [address], [place], [address], [facility] 03/11/2025 10:05:19 5 35051 Therapeutic Exercise (1:1) cancelled Lisa Waterman, ACCOUNTING TUTOR [address], [place], [address], [facility] 11/29/2024 10:13:50 5 82468: Hot or Cold Pack cancelled Lisa Waterman ACCOUNTING TUTOR [address], [place], [address], [facility] 11/29/2024 10:13:50 5 17888: Manual therapy cancelled Lisa Waterman ACCOUNTING TUTOR [address], [place], [address], [facility] 11/29/2024 10:13:50 5 03512 Therapeutic Exercise (1:1) completed Marlon Martinez PT [address], [place], [address], [facility] 10/11/2024 16:46:20 5 59672: Hot or Cold Pack completed Marlon Martinez, PT [address], [place], [address], [facility] 10/11/2024 16:46:20 5 51529: Manual therapy completed Marlon Martinez, PT [address], [place], [address], [facility] 10/11/2024 16:46:20 5 44404 Therapeutic Exercise (1:1) completed Marlon Martinez, PT [address], [place], [address], [facility] 10/07/2024 09:29:48 5 82721: Hot or Cold Pack completed Marlon Martinez, PT [address], [place], [address], [facility] 10/07/2024 09:29:48 5 92083: Manual therapy completed Marlon Martinez, PT [address], [place], [address], [facility] 10/07/2024 09:29:48 5 52653 Therapeutic Exercise (1:1) completed Marlon Martinez, PT [address], [place], [address], [facility] 09/30/2024 05:42:15 5 61209: Hot or Cold Pack completed Marlon Martinez, PT [address], [place], [address], [facility] 09/30/2024 05:42:14 5 75763: Manual therapy completed Marlon Martinez PT [address], [place], [address], [facility] 09/30/2024 05:42:15 5 69685 Therapeutic Exercise (1:1) completed Marlon Martinez, PT [address], [place], [address], [facility] 09/26/2024 18:47:11 5 61796: Hot or Cold Pack completed Marlon Martinez, PT [address], [place], [address], [facility] 09/26/2024 18:47:11 5 22603: Manual therapy completed Marlon Martinez, PT [address], [place], [address], [facility] 09/26/2024 18:47:11 5 81484 Therapeutic Exercise (1:1) completed Makayla Tolentino, ACCOUNTING TUTOR [address], [place], [address], [facility] 09/23/2024 10:21:01 5 85663: Hot or Cold Pack completed Makayla Tolentino, ACCOUNTING TUTOR [address], [place], [address], [facility] 09/23/2024 10:21:00 5 43248: Manual therapy completed Makayla Tolentino, ACCOUNTING TUTOR [address], [place], [address], [facility] 09/23/2024 10:21:01 5 84134 Therapeutic Exercise (1:1) completed Marlon Martinez, PT [address], [place], [address], [facility] 09/21/2024 04:02:58 5 46577: Hot or Cold Pack completed Marlon Martinez, PT [address], [place], [address], [facility] 09/21/2024 04:02:58 5 37230: Manual therapy completed Marlon Martinez, PT [address], [place], [address], [facility] 09/21/2024 04:02:58 5 19727 Therapeutic Exercise (1:1) cancelled Marlon Martinez, PT [address], [place], [address], [facility] 09/12/2024 17:18:30 5 63835: Hot or Cold Pack cancelled Marlon Martinez, PT [address], [place], [address], [facility] 09/12/2024 17:18:30 5 49927: Manual therapy cancelled Marlon Martinez, PT [address], [place], [address], [facility] 09/12/2024 17:18:30 5 15395 Therapeutic Exercise (1:1) completed Marlon Martinez, PT [address], [place], [address], [facility] 09/09/2024 09:11:32 5 15973: Hot or Cold Pack completed Marlon Martinez, PT [address], [place], [address], [facility] 09/09/2024 09:11:32 5 94809: Manual therapy completed Marlon Martinez, PT [address], [place], [address], [facility] 09/09/2024 09:11:32 5 96303 Therapeutic Exercise (1:1) completed Makayla Tolentino, ACCOUNTING TUTOR [address], [place], [address], [facility] 09/07/2024 13:27:51 5 54478: Hot or Cold Pack completed Makayla Tolentino, ACCOUNTING TUTOR [address], [place], [address], [facility] 09/07/2024 13:27:51 5 47742: Manual therapy completed Makayla Tolentino, ACCOUNTING TUTOR [address], [place], [address], [facility] 09/07/2024 13:27:51 5 22295 Therapeutic Exercise (1:1) completed Makayla Tolentino ACCOUNTING TUTOR [address], [place], [address], [facility] 09/03/2024 11:15:58 5 14317: Hot or Cold Pack completed Makayla Tolentino ACCOUNTING TUTOR [address], [place], [address], [facility] 09/03/2024 11:15:58 5 88881: Manual therapy completed Makayla Tolentino ACCOUNTING TUTOR [address], [place], [address], [facility] 09/03/2024 11:15:59 5 85768 Therapeutic Exercise (1:1) completed Marlon Martinez, PT [address], [place], [address], [facility] 08/26/2024 06:14:31 5 26896: Hot or Cold Pack completed Marlon Martinez, PT [address], [place], [address], [facility] 08/26/2024 06:14:31 5 12781: Manual therapy completed Marlon Martinez, PT [address], [place], [address], [facility] 08/26/2024 06:14:31 5 42080 Therapeutic Exercise (1:1) completed Marlon Martinez, PT [address], [place], [address], [facility] 08/22/2024 15:58:46 5 58211: Hot or Cold Pack completed Marlon Martinez, PT [address], [place], [address], [facility] 08/22/2024 15:58:46 5 56274: Manual therapy completed Marlon Martinez, PT [address], [place], [address], [facility] 08/22/2024 15:58:46 5 36238 Therapeutic Exercise (1:1) completed Makayla Tolentino, ACCOUNTING TUTOR [address], [place], [address], [facility] 08/20/2024 08:55:27 5 31545: Hot or Cold Pack completed Makayla Tolentino, ACCOUNTING TUTOR [address], [place], [address], [facility] 08/20/2024 08:55:27 5 37118: Manual therapy completed Makayla Tolentino, ACCOUNTING TUTOR [address], [place], [address], [facility] 08/20/2024 10:37:03 5 73474 Therapeutic Exercise (1:1) completed Marlon Martinez, PT [address], [place], [address], [facility] 08/16/2024 12:26:48 5 43081: Hot or Cold Pack completed Marlon Martinez, PT [address], [place], [address], [facility] 08/16/2024 12:27:52 5 96910: Manual therapy completed Marlon Martinez, PT [address], [place], [address], [facility] 08/15/2024 16:01:05 5 11833 Therapeutic Exercise (1:1) completed Makayla Tolentino, ACCOUNTING TUTOR [address], [place], [address], [facility] 08/12/2024 11:26:19 5 39131: Hot or Cold Pack completed Makayla Tolentino, ACCOUNTING TUTOR [address], [place], [address], [facility] 08/12/2024 11:24:52 5 23990: Manual therapy completed Makayla Tolentino PTA [address], [place], [address], [facility] 08/11/2024 18:44:37 5 89834 Therapeutic Exercise (1:1) completed Makayla Tolentino PTA [address], [place], [address], [facility] 08/06/2024 16:41:01 5 08125: Hot or Cold Pack completed Makayla Tolentino PTA [address], [place], [address], [facility] 08/06/2024 16:41:01 5 88358: Manual therapy completed Makayla Tolentino PTA [address], [place], [address], [facility] 08/06/2024 16:41:01 5 58449 Therapeutic Exercise (1:1) completed Makayla Tolentino PTA [address], [place], [address], [facility] 08/04/2024 18:44:32 5 85945: Hot or Cold Pack completed Makayla Tolentino PTA [address], [place], [address], [facility] 08/04/2024 18:44:32 5 29305: Manual therapy completed Makayla Tolentino PTA [address], [place], [address], [facility] 08/04/2024 18:44:32 5 83361 Therapeutic Exercise (1:1) completed Marlon Martinez PT [address], [place], [address], [facility] 08/01/2024 18:12:54 5 99701: Hot or Cold Pack completed Marlon Martinez, PT [address], [place], [address], [facility] 08/01/2024 18:12:54 5 75583: Manual therapy completed Marlon Martinez, PT [address], [place], [address], [facility] 08/01/2024 18:12:54 5 02042 Therapeutic Exercise (1:1) completed Newton King, ACCOUNTING TUTOR [address], [place], [address], [facility] 07/29/2024 13:50:15 5 93302: Hot or Cold Pack completed Newton King, ACCOUNTING TUTOR [address], [place], [address], [facility] 07/29/2024 13:50:24 5 39033: Manual therapy completed Newton King, ACCOUNTING TUTOR [address], [place], [address], [facility] 07/29/2024 11:41:53 5 93928 Therapeutic Exercise (1:1) cancelled Newton King, ACCOUNTING TUTOR [address], [place], [address], [facility] 07/27/2024 13:18:41 5 60628: Hot or Cold Pack cancelled Newton King, ACCOUNTING TUTOR [address], [place], [address], [facility] 07/27/2024 13:18:41 5 81426: Manual therapy cancelled Newton King, ACCOUNTING TUTOR [address], [place], [address], [facility] 07/27/2024 13:18:41 4 69742 Therapeutic Exercise (1:1) cancelled Marlon Martinez, PT [address], [place], [address], [facility] 07/25/2024 13:47:12 4 27576: Hot or Cold Pack cancelled Marlon Martinez, PT [address], [place], [address], [facility] 07/25/2024 13:47:12 4 38708: Manual therapy cancelled Marlon Martinez, PT [address], [place], [address], [facility] 07/25/2024 13:47:12 4 20634 Therapeutic Exercise (1:1) completed Marlon Martinez, PT [address], [place], [address], [facility] 07/22/2024 16:30:26 4 98253: Hot or Cold Pack completed Marlon Martinez, PT [address], [place], [address], [facility] 07/22/2024 16:30:26 4 58860: Manual therapy completed Marlon Martinez, PT [address], [place], [address], [facility] 07/22/2024 16:30:26 4 30017 Therapeutic Exercise (1:1) completed Makayla Tolentino, ACCOUNTING TUTOR [address], [place], [address], [facility] 07/22/2024 10:27:03 4 30707: Hot or Cold Pack completed Makayla Tolentino ACCOUNTING TUTOR [address], [place], [address], [facility] 07/22/2024 11:30:35 4 16442: Manual therapy completed Makayla Tolentino ACCOUNTING TUTOR [address], [place], [address], [facility] 07/22/2024 10:27:03 4 99757 Therapeutic Exercise (1:1) completed Marlon Martinez, PT [address], [place], [address], [facility] 07/19/2024 07:05:32 4 19803: Hot or Cold Pack completed Marlon Martinez, PT [address], [place], [address], [facility] 07/19/2024 08:10:19 4 69647: Manual therapy completed Marlon Martinez, PT [address], [place], [address], [facility] 07/19/2024 07:33:47 4 89058 Therapeutic Exercise (1:1) completed Marlon Martinez, PT [address], [place], [address], [facility] 07/16/2024 11:58:03 4 97832: Low complexity PT Eval completed Marlon Martinez, PT [address], [place], [address], [facility] 07/15/2024 18:21:26 4 06904 Therapeutic Exercise (1:1) completed Marlon Martinez, PT [address], [place], [address], [facility] 06/02/2024 12:35:07 4 05327: Gait training completed Marlon Martinez, PT [address], [place], [address], [facility] 06/03/2024 18:00:46 4 66540 Therapeutic Exercise (1:1) completed Marlon Martinez, PT [address], [place], [address], [facility] 05/20/2024 15:14:25 4 28814: Low complexity PT Eval completed Marlon Martinez, PT [address], [place], [address], [facility] 05/20/2024 15:14:31 Imaging Results None recorded. Procedure Notes None recorded. Medical Equipment None Reported. Allergies Allergen ID Allergen Name Allergen Category Reaction Reaction Severity Criticality Documentation Date Start Date Code Code System Note Provider Name and Address Organization Details Recorded Time 231153 lisinopri l medicatio n Not available Not available Not available 04/30/2024 91285 RxNorm FLOR OSWALDO [facility] 4 08:58:11 150008 aspirin medicatio n Not available Not available Not available 04/30/2024 1191 RxNorm AISSATOU RUIZ [facility] 4 10:34:23 Medications Name Sig Start Date Stop Date Status Note LastModified by Organization Details LastModified Time amoxicillin 500 mg capsule 4 pills 1 hour prior to procedure 2024 active Not Available Not Available Not Avai lable clonidine HCl 0.1 mg tablet TAKE 1 TABLET BY MOUTH TWICE A DAY 03/11 completed Not Available Not Available Not Available labetalol 200 mg tablet TAKE 1 TABLET BY MOUTH 2 TIMES A DAY active Not Available Not Available No t Available atorvastati n 10 mg tablet TAKE 1 TABLET BY MOUTH 1 TIME EACH DAY. active Not Available Not Available No t Available nifedipine ER 90 mg tablet,exte nded release TAKE 1 TABLET BY MOUTH EVERY DAY 03/11 completed Not Available Not Available Not Available ofloxacin 0.3 % eye drops LOCATION: [...] Not Available Not Available isosorbide mononitrate ER 60 mg tablet,exte nded release 24 hr TAKE 1 TABLET (60 MG) ORALLY DAILY FOR 90 DAYS active Not Available Not Available No t Available hydromorpho ne 2 mg tablet TAKE [...] 3 TIMES A DAY FOR 90 DAYS 03/11 completed Not Available Not Available Not Available losartan 100 mg tablet TAKE 1 [...] Updated DateTime 11/03/2024 154.94 cm 37.6 kg/m2 19151.88 g Joan Lui [facility] 11/03/2024 13:02:24 Date Recorded Body height Provider Name an d Address Organization Details Last Updated DateTime 03/11/2025 154.94 cm boogie chidi [facility] 03/11/2025 09:55:36 Social History None recorded. Functional Status None recorded. Mental Status None recorded. Family History Nothing Reported. Medical History No medical history recorded. Gynecological HistoryNo gynecological history recorded. Obstetrics History GPAL:G 0 P 0 0 0 0 Past Encounters Encounter ID Performer Location Encounter Start Date Encounter Closed Date Diagnosis/Indication Diagnosis SNOMED-CT Code Diagnosis ICD10 Code Diagnosis IMO Codes Diagnosis Note [id number] Chalo Chavez PA-C [facility] [address] [place] [address] 04/30/2024 08:53:37 05/25/2024 04:00:18 Pain of bilateral knee regions [id number] 39032 M25.561 M25.403 [id number] Peewee Corral MD [facility] 2nd floor [address] [place] [address] 04/30/2024 09:37:39 05/24/2024 12:25:22 Osteoarthritis of left knee joint [id number] 64714 M17.12 Bilateral osteoarthritis of knees [id number] 74547 M17.0 [id number] Marlon Martinez, PT [facility] [address] [place] [address] 05/20/2024 16:50:57 05/21/2024 08:14:48 Osteoarthritis of knee [id number] M17.12 [id number] Marlon Martinez, PT [facility] [address] [place] [address] 06/03/2024 16:25:35 06/04/2024 08:18:12 Osteoarthritis of knee 376880996 M17.12 [id number] Katherine Foley APRN [facility] 2nd floor [address] [place] [address] 07/02/2024 07:27:21 07/21/2024 03:57:44 [id number] Marlon Martinez, PT [facility] [address] [place] [address] 07/16/2024 09:22:43 07/16/2024 13:01:58 History of left total knee replacement 2438135159 287076 Z96.652 Z47.1 Surgical follow-up 42186 4000 Z47.1 Z96.652 [id number] Marlon Martinez PT [facility] [address] [place] [address] 07/19/2024 06:58:15 07/20/2024 08:10:44 History of left total knee replacement 3329999182 145856 Z96.652 Z47.1 Surgical follow-up 33675 4000 Z47.1 Z96.652 [id number] Opal Caballero, TIGER MACHINE OPERATOR [facility] 2nd floor [address] [place] [address] 07/19/2024 13:31:00 08/09/2024 14:34:57 History of operative procedure on knee 903641999 Z96.652 26215194 Osteoarthr itis of left knee joint 9312093253 77221 M17.12 [id number] Makayla Tolentino, ACCOUNTING TUTOR [facility] [address] [place] [address] 07/22/2024 10:16:15 07/22/2024 11:35:02 History of left total knee replacement 6372860635 321673 Z96.652 Z47.1 Surgical follow-up 96839 4000 Z47.1 Z96.652 [id number] [id number] Marlon Martinez, PT [facility] [address] [place] [address] 07/23/2024 11:43:04 07/23/2024 15:09:28 History of left total knee replacement 5305228994 057538 Z96.652 Z47.1 Surgical follow-up 63364 4000 Z47.1 Z96.652 53215263 [id number] Newton King, ACCOUNTING TUTOR [facility] [address] [place] [address] 07/29/2024 12:52:35 07/29/2024 13:53:55 History of left total knee replacement 6586678176 257649 Z96.652 Z47.1 Surgical follow-up 55460 4000 Z47.1 Z96.652 [id number] Marlon Martinez, PT [facility] - [facility] [address] [place] [address] 08/02/2024 09:25:19 08/02/2024 13:19:07 History of left total knee replacement 5785157267 921634 Z96.652 Z47.1 Surgical follow-up 70780 4000 Z47.1 Z96.652 [id number] Bharat Tellez PA-C [facility] [place] [address] [place] [address] 08/04/2024 12:58:33 08/18/2024 11:28:05 Postoperative visit [id number] Z48.89 [id number] Makayla Tolentino ACCOUNTING TUTOR [facility] - [facility] [address] [place] [address] 08/05/2024 09:50:27 08/05/2024 10:55:53 History of left total knee replacement 4471461454 365512 Z96.652 Z47.1 Surgical follow-up 55313 4000 Z47.1 Z96.652 31388485 [id number] Makayla Tolentino PTA [facility] [address] [place] [address] 08/09/2024 10:19:07 08/09/2024 11:50:45 History of left total knee replacement 4752678445 007819 Z96.652 Z47.1 Surgical follow-up 96902 4000 Z47.1 Z96.652 [id number] [id number] Makayla Tolentino PTA [facility] [address] [place] [address] 08/12/2024 08:47:10 08/12/2024 11:36:27 History of left total knee replacement 4083461147 178798 Z96.652 Z47.1 Surgical follow-up 01845 4000 Z47.1 Z96.652 73711344 [id number] Marlon Martinez, PT [facility] [address] [place] [address] 08/16/2024 09:18:21 08/16/2024 16:20:32 History of left total knee replacement 3739462700 133656 Z96.652 Z47.1 Surgical follow-up 19997 4000 Z47.1 Z96.652 39280811 [id number] Makayla Tolentino ACCOUNTING TUTOR [facility] [address] [place] [address] 08/20/2024 09:26:06 08/20/2024 10:40:29 History of left total knee replacement 5214211963 847803 Z96.652 Z47.1 Surgical follow-up 80143 4000 Z47.1 Z96.652 [id number] [id number] Marlon Martinez, PT [facility] [address] [place] [address] 08/23/2024 09:20:44 08/24/2024 08:34:13 History of left total knee replacement 8892628050 810065 Z96.652 Z47.1 Surgical follow-up 33170 4000 Z47.1 Z96.652 [id number] [id number] Marlon Martinez, PT [facility] [address] [place] [address] 08/26/2024 11:48:54 08/26/2024 15:26:45 History of left total knee replacement 0784677125 320545 Z96.652 Z47.1 Surgical follow-up 04189 4000 Z47.1 Z96.652 [id number] Makayla Tolentino, ACCOUNTING TUTOR [facility] [address] [place] [address] 09/03/2024 10:54:48 09/03/2024 11:58:36 History of left total knee replacement 9047411687 633459 Z96.652 Z47.1 Surgical follow-up 52754 4000 Z47.1 Z96.652 [id number] Makayla Tolentino ACCOUNTING TUTOR [facility] [address] [place] [address] 09/08/2024 11:52:52 09/08/2024 14:14:22 History of left total knee replacement 2936318814 782477 Z96.652 Z47.1 Surgical follow-up 83173 4000 Z47.1 Z96.652 [id number] Marlon Martinez, PT [facility] [address] [place] [address] 09/10/2024 09:22:13 09/10/2024 11:30:18 History of left total knee replacement 2454778570 242049 Z96.652 Z47.1 Surgical follow-up 97903 4000 Z47.1 Z96.652 84382207 [id number] Marlon Martinez, PT [facility] [address] [place] [address] 09/21/2024 09:19:58 09/21/2024 11:05:35 History of left total knee replacement 4769108295 654622 Z96.652 Z47.1 Surgical follow-up 91185 4000 Z47.1 Z96.652 [id number] [id number] Makayla Tolentino, ACCOUNTING TUTOR [facility] [address] [place] [address] 09/23/2024 11:23:12 09/23/2024 12:16:59 History of left total knee replacement 6838453907 029330 Z96.652 Z47.1 Surgical follow-up 55531 4000 Z47.1 Z96.652 [id number] Marlon Martinez, PT [facility] [address] [place] [place] [address] 09/27/2024 09:23:45 09/27/2024 14:58:02 History of left total knee replacement 0184133333 569098 Z96.652 Z47.1 Surgical follow-up 26208 4000 Z47.1 Z96.652 [id number] Marlon Martinez, PT [facility] [address] [place] [address] 09/30/2024 16:23:25 10/01/2024 08:21:35 History of left total knee replacement 2853812317 068465 Z96.652 Z47.1 Surgical follow-up 64808 4000 Z47.1 Z96.652 [id number] Marlon Martinez, PT [facility] [address] [place] [address] 10/07/2024 16:25:34 10/08/2024 09:59:51 History of left total knee replacement 0559342133 651088 Z96.652 Z47.1 Surgical follow-up 06181 4000 Z47.1 Z96.652 [id number] Marlon Martinez PT [facility] [address] [place] [address] 10/12/2024 17:22:09 10/13/2024 08:17:37 History of left total knee replacement 4808916882 618442 Z96.652 Z47.1 Surgical follow-up 11784 4000 Z47.1 Z96.652 [id number] MD [facility] 2nd floor [address] [facility] [address] 11/03/2024 12:52:22 11/12/2024 10:18:29 History of left total knee replacement 2109468958 170065 Z96.652 74358563 [id number] [facility] - [facility] 2nd floor [address] [facility] [address] 03/11/2025 09:34:46 03/22/2025 11:08:55 Knee joint prosthesis present 2787765485 02 Z96.916 2051802 Pain of bi lateral knee regions 2147716042 13025 M25.561 M25.562 06943523 Osteoarthr itis of right knee joint 0374768312 83249 M17.11 [id number] Health Concerns Section Related Observation LastModified by Organization Detai ls LastModified Time None Recorded Concern Status LastModified by Organization Details LastModified Time None Recorded Advance Directives Directive None Recorded Payers Insurance Date Sequence Insurance Name Policy Number Policy Fay Covered Member ID Fay Member ID Guarantor Name 06/21/[address] [place] [address] [id number] 1 [facility] [id number] [facility] Notes Date Note Type Note Provider Name and Address Organization Details Recorded Time 09/30/2024 text/html Pt rates 4/10 px before PT. pt can now ascend stairs normal unable to descend stairs normal yet Marlon Martinez, PT [address], [place], [address], [facility] 09/30/2024 18:06:36 10/07/2024 text/html Pt rates 4/10 px before PT. pt can now ascend stairs normal unable to descend stairs normal yet Marlon Martinez, PT [address], [place], [address], [facility] 10/07/2024 17:05:43 10/12/2024 text/html Pt rates 2/10 px before PT. pt can now ascend stairs normal unable to descend stairs normal yet Marlon Martinez, PT [address], [place], [address], [facility] 10/12/2024 19:01:36 03/11/2025 text/html I am seeing the patient today under the supervision of Dr. Vasquez who was available but who did not see the patient. HPI: Gisselle presents to the office for a recheck of her left knee. She is status post Left total knee arthroplasty performed on 07/06/24. She has struggled with her range of motion post-operatively. She saw Dr. Corral in October and requested to go to physical therapy. She was unable to attend therapy sessions her insurance would not cover it. She indicates that her discomfort and hypersensitivity have been slowly improving. She continues to have some stiffness in her knees. She has known end-stage right knee osteoarthritis. She would like a cortisone injection for this today. She otherwise is without any new systemic complaints. PMH/PSH/MEDS/ALL/FMH/S OC HX/ROS are reviewed in detail per my medical intake sheet. General Exam: Vital signs are as noted below Mental status: Alert and lucid. Normal insight, affect and grooming. LOGISTICS SOLUTION MANAGER: Gross motor coordination is intact. No spasticity or clonus noted. EXAMINATION: The patient is well appearing and in no apparent distress. Alert and oriented x3. Gait is antalgic. Left knee reveals a surgical scar over the anterior knee, otherwise no deformity upon inspection. No joint effusion, edema, erythema, ecchymosis, or lesions. Neurovascularly intact. No localized tenderness. ROM is 0-95 degrees. No crepitus noted. Stability intact with anterior, posterior, and varus/valgus stress at both 0 and 30 degrees of flexion. 5/5 strength. Calf/leg compartments soft and compressible. Right knee reveals varus deformity upon inspection. No joint effusion, edema, erythema, ecchymosis, or lesions. Neurovascularly intact. Tenderness present along the medial joint line. ROM is from 0-95 degrees. Crepitus noted. Stability intact with anterior, posterior, and varus/valgus stress at both 0 and 30 degrees of flexion. 5/5 strength. Calf/leg compartments soft and compressible. X-rays ordered, obtained and reviewed at [facility] today include 4 views of bilateral knees. Images reveal left total knee arthroplasty to be in good position and without evidence of loosening. No acute fracture or lesion. There is severe end-stage osteoarthritis of the right medial and patellofemoral compartments with subchondral sclerosis and osteophyte formation. No acute fracture or lesion. IMPRESSION: Status post left total knee arthroplasty performed on 07/06/24, right knee end-stage osteoarthritis PLAN: The patient was thoroughly counseled today regarding their knee condition, its natural history, and conservative versus surgical treatment options. The patient is interested in receiving an injection with corticosteroid. The right knee was prepped sterilely and an injection was administered utilizing 40mg of Kenalog and 4cc of 0.25% Marcaine. The patient tolerated the procedure well. Post-injection precautions were discussed. Recommended avoiding strenuous activity over the next 24-48 hours. Encouraged elevation of the leg, applying ice, and taking over the counter medication as needed. The patient is aware that the injection can be repeated as often as every 3 months. She is aware that anything short of a total knee arthroplasty will not provide her with extended relief. She currently has no interest in surgical intervention. Her left knee has been slowly improving. She will continue performing the home exercise program she previously learned from therapy. All questions answered. Enriqueta Gonzalez PA-C [address] [facility] [address], [place], [address], [facility] 03/11/2025 12:43:27 OBGyn Episode No OBEpisode recorded.
--- OUTSIDE RECORDS SUMMARY | 2025-07-07 23:15 | XMS_ITS | Clinical Summary ---
Author Organization [facility] Address [address] [place] [address] Phone Care Team Providers Care B2B Outside Sales Representative Name Role Phone Susan Hodge MD Primary Care Provider [phone] Allergies Active Allergy Reactions Criticality Noted Date [...] (one) time each day. 90 tablet 3 5 Active glipiZIDE (GLUCOTROL XL) 5 mg 24 hr tablet Take 1 tablet (5 mg total) by mouth 2 (two) times a day. 180 tablet 3 5 Active hydrALAZINE (APRESOLINE) 25 mg tablet Take 3 tablets (75 mg total) by mouth 3 (three) times a day. Active cloNIDine (CATAPRES) 0.1 mg tablet Take 1 tablet (0.1 mg total) by mouth 2 (two) times a day. 180 each 3 5 Active hydrALAZINE (APRESOLINE) 50 mg tablet TAKE 1 TABLET BY MOUTH THREE TIMES A DAY 270 tablet 3 5 Active Active Problems Problem Noted Date Diagnosed Date Stage 4 chronic kidney disease 03/09/2025 Bilateral knee pain 09/29/2023 Bilateral wrist pain [...] 2 diabetes mellitus wit h renal manifestations ([facility] V24, [facility] V28) 03/09/2018 DX:Type 2 diabetes mellitus with renal manifestations ([facility]) Vitamin D deficiency 03/09/2018 DX:Vitamin D deficiency Severe obesity (BMI 35.0-35. 9 with comorbidity) (CMS/HCC V24, [facility] V28) 02/22/2019 DX:Severe obes ity (BMI 35.0- 35.9 with comorbidity) ([facility]) Bilateral knee pain DX:Bilateral knee pain [...] Orientation Straight 11/23/2024 2: 59 PM EDT Last Filed Vital Signs Vital Sign Reading Time Taken Comments Blood Pressure 187/92 03/15/2025 3:35 PM EDT Pulse 73 03/15/2025 3:35 PM EDT Temperature 36.7 C (98 F) 03/15/2025 3:35 PM EDT Respiratory Rate - - Oxygen Saturation 97% 03/09/2025 1:46 PM EDT Inhaled Oxygen Concentration - - Weight 92.5 kg (204 lb) 03/15/2025 3:35 PM EDT Height 157.5 cm (5' 2 ) 03/15/2025 3:35 PM EDT Body Mass Index 37.31 03/15/2025 3:35 PM EDT Plan of Treatment Upcoming Encounters Date Type Department Care Team (Late st Contact Info) Description 07/19/2025 9:45 AM EST Office Visit Internal Medicine - [place] [address] [facility] [place] [address] [place] [address] Susan Hodge MD [address] [place] [address] 09/13/2025 10:00 AM EST Office Visit General Surgery - [place] [address] [facility] [address] [place] [address] Moshe Healy, [address] [place] [phone] Health Maintenance Due Date Last Done Comments Breast Cancer Screening 1965 Colorectal Cancer Screening: Colonoscopy 1963 Diabetes: Annual Foot Exam 1973 DTaP,Tdap,and Td Vaccines (1 - Tdap) 1982 Pneumococcal Vaccine: 50+ Years (1 of 2 - PCV) 1982 RSV Immunization Adult Patients (1 - Risk 50-74 years 1-dose series) 2013 Zoster Vaccines (1 of 2) 2013 HIV Screening 07/06/2022 Hepatitis C Screening 07/06/2022 Social Influencers of Health Screening 07/06/2022 Diabetes: Annual Urine Albumin-Creatinine Ratio (uACR) 05/30/2023 05/30/2022 Diabetes: Annual Retina Eye Exam 02/01/2024 01/31/2023 Depression Screening 07/28/2024 Diabetes: Annual GFR (Glomerular Filtration Rate) 12/16/2024 12/17/2023 Hypertension/CHF/CAD Annual BMP Blood Test 12/16/2024 12/17/2023 COVID-19 Vaccine ( season) 2025 Influenza Vaccine (#1) 2025 Diabetes: Blood Sugar Control Test (HGBA1C) 09/09/2025 03/09/2025, 11/16/2024, 12/17/2023, Additional history exists Cervical Cancer Screening: Pap [...] Date/Time Associated Diagnosis Comments HEMOGLOBIN A1C Routine 03/09/2025 2:35 PM EDT Type 2 diabetes mellitus with stage 4 chronic kidney disease, without long-term current use of insulin ([facility] V24, [facility] V28) LIPID PANEL WITH REFLEX TO DIRECT LDL Routine 11/16/2024 12:50 PM EDT Periumbilical mass Essential (primary) hypertension Type 2 diabetes mellitus with other diabetic kidney complication (CMS/HCC V24, CMS/HCC V28) PAP SMEAR Routine 03/07/2023 from Last 3 Months or Most Recently Relevant to Health Maintenance Results * Hemoglobin A1c (03/09/2025 2:35 PM EDT) Pathologist [facility] Hemoglobin A1C 6.2 <6.5 % LAB CHEMISTRY METHOD 03/09/2025 8:42 PM EDT [facility] Mean Bld Glu Estim. 131 mg/dL LAB CHEMISTRY METHOD 03/09/2025 8:42 PM EDT [facility] Blood Venous blood specimen / Unknown Venipuncture / Unknown 03/09/2025 2:35 PM EDT 03/09/2025 2:35 PM EDT us Susan Hodge MD LAB BLOOD ORDERABLES Final Res ult [facility] [address] [place] [address], [place] [phone] * Lipid panel with reflex to direct LDL (11/16/2024 12:50 PM EDT) Pathologist [facility] Cholesterol 141 0 - 200 mg/dL LAB CHEMISTRY METHOD 11/16/2024 2:37 PM EDT [facility] Triglycerides 52 0 - 150 mg/dL LAB CHEMISTRY METHOD 11/16/2024 2:37 PM EDT [facility] HDL 50 >=40 mg/dL LAB CHEMISTRY METHOD 11/16/2024 2:37 PM EDT [facility] LDL Calculated 81 0 - 100 mg/dL LAB CHEMISTRY METHOD 11/16/2024 2:37 PM EDT [facility] VLDL Cholesterol Maximino 10.4 mg/dL LAB CHEMISTRY METHOD 11/16/2024 2:37 PM EDT [facility] Non HDL Chol. (LDL+VLDL) 91 <145 mg/dL LAB CHEMISTRY METHOD 11/16/2024 2:37 PM EDT [facility] Chol/HDL Ratio 2.8 0.0 - 4.4 LAB CHEMISTRY METHOD 11/16/2024 2:37 PM EDT [facility] Blood Venous blood specimen / Unknown Venipuncture / Unknown 11/16/2024 12:50 PM EDT 11/16/2024 1:31 PM EDT Susan Hodge MD LAB BLOOD ORDERABLES Final Res ult [facility] [address] [place] [address], [place] [phone] * Pap Smear (03/07/2023) Pap smear Negative Historical Provider HEALTH MAINTENANCE Final Result from Last 3 Months or Most Recently Relevant to Health Maintenance Insurance [facility] [address] [place] [address] Care Teams B2B Outside Sales Representative Relationship Specialty Start Date End Date Susan Hodge MD [address] [facility] [address] [place] [address] PCP - General Internal Medicine 07/19/20
== END 2025-07-07 16:45 | disposition home or self-care (01) ==
LOC: HO.HKAS 16:06
PROVIDERS: PCP Internal Medicine; Visit Provider Internal Medicine Nephrology
DX: E85.82 Wild-type transthyretin-related (ATTR) amyloidosis (principal); I12.9 Hypertensive chronic kidney disease with stage 1 through stage 4 chronic kidney disease, or unspecified chronic kidney disease; N18.4 Chronic kidney disease, stage 4 (severe)
CPT/HCPCS: 99214